=== PATIENT | male | born 1940 | race Caucasian/White ===

== ENCOUNTER → 2016-12-08 | Day surgery (SDC) | payer OTHER, MEDICARE ==
[2016-12-01 10:51] VITALS: Ht 177.8 cm; Wt 100.0 kg
[~2016-12-08] VITALS: Ht 177.8 cm; Wt 100.0 kg
[~2016-12-08] MED LIST: 500ML BSS 0.3ML EPI 1:1000PF IRRIG ONE; ACETAMINOPHEN 325 MG TAB PO PRN; AMVISC PLUS 0.8ML SYRINGE INT OCU ONE; ASPI81TA25 PO; ATROPINE SULFATE 0.1 MG/ML 5ML SYR IV PRN; AcetaZOLAMIDE 250 MG TAB PO SCH; BETAXOLOL HCL 0.25% OP SUSP PER DROP CHARGE OPL SCH; BRIMONIDINE TART 0.2% OP SOLN PER DROP CHARGE ONE; BSS FLUSH ONE; ENDOCOAT 0.85ML SYRINGE INT OCU ONE; EpHEDrine SULFATE INJ 50 MG/ML AMP IV PRN; EpINEphrine INJ 1MG/ML AMP 1 MG/ML AMP ONE; FENTANYL CITRATE INJ 50 MCG/1 ML 2 ML VIAL IV PRN; FENTANYL CITRATE INJ 50 MCG/1 ML 2 ML VIAL ONE; FLUMAZENIL 0.1 MG/1 ML 10 ML VIAL IV PRN; HYDROmorphone INJ 2 MG/ML SYR/VIAL IV PRN; LABETALOL HCL IV 5 MG/ML 20ML IV PRN; LACTATED RINGER'S 1000ML 500 ML IV SCH; LATA0.5S OPL; LIDOCAINE 4% OP SOLN DROP CHARGE ONE; LIDOCAINE 4% OP SOLN DROP CHARGE OPL SCH; LIDOCAINE HCL 1% MPF 2 ML VIAL ONE; MEPERIDINE HCL 25 MG/ML CARP IV PRN; MIDAZOLAM HCL 1 MG/ML 2ML VIAL ONE; MIX: 4ML BSS 1ML EPI 1:1000 PF INSTIL ONE; MOXIFLOXACIN OPH SOLN PER DROP CHARGE ONE; MULTTAB5 PO; NALOXONE HCL 0.4 MG/1 ML VIAL/CARP IV PRN; NAPR1TAB9 PO; NORT25CA PO; OCUCOAT 1 ML SOLN IO ONE; ONDANSETRON INJ 2 MG/ML 2 ML VIAL IV PRN; PHENYLEPHRINE 100MCG/ML 5ML SYR IV PRN; POVIDONE-IODINE OP SOLN 30 ML BTL ONE; PRLSR20 PO; PROPARACAINE 0.5% OP SOLN PER DROP CHARGE OPL SCH; TOBRAMYCIN/DEXAMETHASONE OPH OINT PER APPLN CHARGE ONE
--- NOTE | 2016-12-08 06:52 | History & Physical Bridge - [place] ---
H&P Re-Evaluation Bridge Note: I have examined the patient, reviewed the History & Physical and in the interval since the performance of the History & Physical I have noted the following changes of clinical significance: No changes noted
[2016-12-08] MEDS: PHENYLEPHRINE HCL 2.5% OP SOLN PER DROP CHARGE OPL SCH ×2 (07:18→07:23)
[2016-12-08] MEDS: TROPICAMIDE 1% OP SOLN PER DROP CHARGE OPL SCH ×2 (07:19→07:24)
[2016-12-08] MEDS: CYCLOPENTOLATE HCL 1% OP SOLN PER DROP CHARGE OPL SCH ×2 (07:20→07:25)
[2016-12-08] MEDS: MOXIFLOXACIN OPH SOLN PER DROP CHARGE OPL SCH ×2 (07:21→07:26)
[2016-12-08 08:21] VITALS: TEMP 36.7
--- NOTE | 2016-12-08 08:22 | Discharge Instructions-[facility]urgCtr ---
Discharge Instructions Date of Service Dec 08, 2016. Visit Reason for Visit: Left Cataract Discharge Discharge Diagnosis / Problem: lens implant left eye Discharge Goals Goal(s): Improve function Activity Recommendations Activity Limitations: resume your previous activity Lifting Limitations: no more than 10 pounds Exercise/Sports Limitations: gradually increase as tolerated May Resume Sexual Activity: when tolerated Shower/Bathe: tomorrow Driving or Machine Use: resume 1 day after discharge Anesthesia . Post Anesthesia Instructions: If you have had General Anesthesia or IV Sedation: * Do not drive today. * Resume driving when surgeon permits. * Do not make important decisions or sign legal documents today. * Call surgeon for: 1. Temperature elevations greater than 101 degrees F. 2. Uncontrollable pain. 3. Excessive bleeding. 4. Persistent nausea and vomiting. 5. Medication intolerance (nausea, vomiting or rash). * For nausea and vomiting use only clear liquids such as: tea, soda, bouillon until nausea subsides, then gradually increase diet as tolerated. * If you have any concerns or questions, call your surgeon's office. If physician is unavailable and it is an emergency, call 911 or go to the nearest emergency room. . Instructions / Follow-Up Instructions / Follow-Up ACTIVITY RECOMMENDATIONS: * Light activities. * Mild irritation and blurred vision are common for the first few days. * You may walk outside, read, watch television. * Redness around the white part of the eye is common. MEDICATIONS: Resume previous medications unless instructed otherwise by your surgeon. * Take white Diamox (Acetazolamide) tablet at 1 pm today. Start all eye drops at 1 pm today: * Eye drops (today and tomorrow): Prednisone - one drop in operative eye every 3 hours while awake Ofloxacin - one drop in operative eye every 3 hours while awake SPECIAL CARE INSTRUCTIONS: * Tape plastic shield over eye to sleep at night. Call your doctor at with any concerns or problems. FOLLOW UP VISIT: Follow-up with Dr Hayes at [place] office as scheduled. Diet Recommendations Home Diet: no limitations Procedures Procedures Performed: Left Cataract Phacoemulsification With Intraocular Lens Implant, Toric Lens Pending Studies Studies pending at discharge: no Medical Emergencies . Who to Call and When: Medical Emergencies: If at any time you feel your situation is an emergency, please call 911 immediately. . Non-Emergent Contact Non-Emergency issues call your: Nail Feeder Call Non-Emergent contact if: your pain is not controlled [phone] . . "Provider Documentation" section prepared by Clyde Hayes. .
--- NOTE | 2016-12-08 08:25 | [facility] Operative Report ---
Operative Report Date of Service Dec 08, 2016. Operative Report 1. PREOPERATIVE DIAGNOSIS: Senile nuclear cataract, left eye. 2. POSTOPERATIVE DIAGNOSIS: Senile nuclear cataract, left eye. 3. PROCEDURE: Phacoemulsification of left cataract with posterior chamber lens implant, type Romero, model [id number], power +23.0 diopters. ANESTHESIA: Local standby. SURGEON: Dr. Hayes. COMPLICATIONS: None. OPERATING TIME: 10 minutes. 4. OPERATION AND FINDINGS: DESCRIPTION OF PROCEDURE: The left pupil was dilated. The anesthetic was administered using a topical technique. The left eye was prepped and draped. A speculum was placed. A clear corneal incision was formed. The chamber was filled with Amvisc Plus and Endocoat. Epinephrine solution was used. A paracentesis was placed. A capsulorrhexis was performed. The nucleus was hydrodissected. The lens was removed with phacoemulsification. Time was 5.24 seconds. The aspiration unit was used to remove the cortex. The capsule was filled with Amvisc Plus. The lens implant was folded and placed into the capsule. The implant was rotated to the correct position. The incision was hydrated. The Amvisc was aspirated. The wound was secure. The chamber was deep. The pupil was round. Brimonidine, TobraDex ointment and Vigamox solution were placed. The speculum was removed. The patient was returned to the Recovery Room in stable condition. I attest to the content of the Intraoperative Record and any orders documented therein. Any exceptions are noted below. The scribe's documentation has been prepared in my presence, under my direction and personally reviewed by me in its entirety. I confirm that the note above accurately reflects all work, treatment, procedures, and medical decision making performed by me. I personally scribed for Clyde Hayes M.D. ([email or web address]) on 12/08/16 at 08:25. Electronically submitted by Torie Dockery ([email or web address]).
[2016-12-08 08:52] VITALS: BP 152/88; PULSE 85; O2SAT 94
--- NOTE | 2016-12-08 08:53 | Anesthesia Progress Nt - [facility] ---
Anesthesia Post Op Note Date & Time Dec 08, 2016 at 08:53 Vital Signs Pain Intensity: 0 Vital Signs Past 12 Hours Date Time Temp Pulse Resp B/P (MAP) Pulse Ox O2 Delivery O2 Flow Rate FiO2 12/08/16 08:21 36.7 85 12 148/90 (109) 95 Room Air 12/08/16 07:07 36.5 85 18 166/95 (118) 94 Room Air Notes Mental Status: alert / awake / arousable, participated in evaluation Pt Amnestic to Procedure: Yes Nausea / Vomiting: adequately controlled Pain: adequately controlled Airway Patency, RR, SpO2: stable & adequate BP & HR: stable & adequate Hydration State: stable & adequate Anesthetic Complications: no major complications apparent
== END | disposition home or self-care (01) ==
LOC: X.SURG 06:41
PROVIDERS: ATTEND Specialist
DX: H25.12 Age-related nuclear cataract, left eye (principal); M19.90 Unspecified osteoarthritis, unspecified site; K21.9 Gastro-esophageal reflux disease without esophagitis; Z90.49 Acquired absence of other specified parts of digestive tract; Z79.82 Long term (current) use of aspirin; Z85.118 Personal history of other malignant neoplasm of bronchus and lung; Z90.2 Acquired absence of lung [part of]; E66.9 Obesity, unspecified

== ENCOUNTER → 2017-05-25 | Outpatient (CLI) | payer OTHER, MEDICARE ==
[~2017-05-25] MED LIST changes: -500ML BSS 0.3ML EPI 1:1000PF IRRIG ONE; +ACET-1047 PO; +ACET-1311 PO; -ACETAMINOPHEN 325 MG TAB PO PRN; -AMVISC PLUS 0.8ML SYRINGE INT OCU ONE; -ATROPINE SULFATE 0.1 MG/ML 5ML SYR IV PRN; +ATV/1 PO; -AcetaZOLAMIDE 250 MG TAB PO SCH; -BETAXOLOL HCL 0.25% OP SUSP PER DROP CHARGE OPL SCH; -BRIMONIDINE TART 0.2% OP SOLN PER DROP CHARGE ONE; -BSS FLUSH ONE; +CLC100 PO; +DLM30 PO; -ENDOCOAT 0.85ML SYRINGE INT OCU ONE; -EpHEDrine SULFATE INJ 50 MG/ML AMP IV PRN; -EpINEphrine INJ 1MG/ML AMP 1 MG/ML AMP ONE; -FENTANYL CITRATE INJ 50 MCG/1 ML 2 ML VIAL IV PRN; -FENTANYL CITRATE INJ 50 MCG/1 ML 2 ML VIAL ONE; -FLUMAZENIL 0.1 MG/1 ML 10 ML VIAL IV PRN; +FOLI1TAB8 PO; -HYDROmorphone INJ 2 MG/ML SYR/VIAL IV PRN; -LABETALOL HCL IV 5 MG/ML 20ML IV PRN; -LACTATED RINGER'S 1000ML 500 ML IV SCH; -LIDOCAINE 4% OP SOLN DROP CHARGE ONE; -LIDOCAINE 4% OP SOLN DROP CHARGE OPL SCH; -LIDOCAINE HCL 1% MPF 2 ML VIAL ONE; -MEPERIDINE HCL 25 MG/ML CARP IV PRN; -MIDAZOLAM HCL 1 MG/ML 2ML VIAL ONE; -MIX: 4ML BSS 1ML EPI 1:1000 PF INSTIL ONE; -MOXIFLOXACIN OPH SOLN PER DROP CHARGE ONE; -NALOXONE HCL 0.4 MG/1 ML VIAL/CARP IV PRN; +NXM/40 PO; -OCUCOAT 1 ML SOLN IO ONE; +ONDA-170 PO; -ONDANSETRON INJ 2 MG/ML 2 ML VIAL IV PRN; +OXYC-57 PO; -PHENYLEPHRINE 100MCG/ML 5ML SYR IV PRN; -POVIDONE-IODINE OP SOLN 30 ML BTL ONE; -PROPARACAINE 0.5% OP SOLN PER DROP CHARGE OPL SCH; -TOBRAMYCIN/DEXAMETHASONE OPH OINT PER APPLN CHARGE ONE
--- NOTE | 2017-05-25 14:21 | DIAGNOSTIC IMAGING REPORT ---
CHEST 2 VIEWS ROUTINE CLINICAL HISTORY: C34.90 Malignant neoplasm of lung, unspecified laterality, unspe COMPARISON STUDY: Chest CT February 05, 2013 and chest radiograph January 02, 2015. FINDINGS: Incidental noted is made of cholecystectomy clips. Postoperative findings within the right lung are again noted. There is no evidence of pulmonary edema. There is no consolidation to suggest pneumonia. Cardiomediastinal silhouette is stable. There is a possible 1.5 cm left upper lung nodule. This was not evident on prior exam. Linear right midlung opacity is unchanged and suggests scarring. IMPRESSION: Possible 1.5 cm left upper lung nodule. This could reflect artifact, minimal airspace disease or a pulmonary nodule. If not recently performed, a chest CT is recommended to exclude a pulmonary nodule. Electronically signed by: Salomón Delgado M.D. 05/25/2017 2:20 PM Dictated Date/Time: 05/25/2017 2:15 PM
== END | disposition home or self-care (01) ==
LOC: C.RAD 13:35
PROVIDERS: ATTEND Urology
DX: C34.90 Malignant neoplasm of unspecified part of unspecified bronchus or lung (principal)

== ENCOUNTER → 2017-07-08 | Outpatient (CLI) | payer OTHER, MEDICARE ==
[~2017-07-08] MED LIST changes: -ACET-1311 PO; -ATV/1 PO; -DLM30 PO; -FOLI1TAB8 PO; -NXM/40 PO; -ONDA-170 PO
[2017-07-08 13:25] LABS: BASO % 0.4 %; BASO ABS # 0.02 K/uL (0-0.2); EOS % 0.8 %; EOS ABS # 0.04 K/uL (0-0.5); HEMATOCRIT 46.8 % (42-52); HEMOGLOBIN 16.3 g/dL (14.0-18.0); LYMPH % 17.3 %; LYMPH ABS # 0.85 K/uL (1.2-3.4); MEAN CELL VOLUME 87.8 fL (80-100); MEAN CORPUSCULAR HEMOGLOBIN 30.6 pg (25-34); MEAN CORPUSCULAR HGB CONC 34.8 g/dl (32-36); MONO % 9.8 %; MONO ABS # 0.48 K/uL (0.11-0.59); NEUT % 71.7 %; NEUT ABS # 3.51 K/uL (1.4-6.5); PLATELET COUNT 184 K/uL (130-400); RED CELL DISTRIBUTION WIDTH CV 12.4 % (11.5-14.5); RED CELL DISTRIBUTION WIDTH SD 39.5 fL (36.4-46.3)
[2017-07-08 13:50] LABS: BLOOD UREA NITROGEN 20 mg/dl (7-18); CARBON DIOXIDE 32 mmol/L (21-32); CREATININE 0.89 mg/dl (0.60-1.40); GLUCOSE 100 mg/dl (70-99); POTASSIUM 3.8 mmol/L (3.5-5.1); SODIUM 140 mmol/L (136-145)
== END | disposition home or self-care (01) ==
LOC: C.CPL 12:06
PROVIDERS: ATTEND Surgery
DX: C34.90 Malignant neoplasm of unspecified part of unspecified bronchus or lung (principal)

== ENCOUNTER → 2017-07-11 | Outpatient (CLI) | payer OTHER, MEDICARE ==
--- NOTE | 2017-07-11 15:28 | DIAGNOSTIC IMAGING REPORT ---
PET/CT CLINICAL HISTORY: Pulmonary nodule. History of prostate cancer and lung cancer. TECHNIQUE: A PET/CT was performed from the skull base through the upper thighs following intravenous injection of 11.33 mCi of F 18 FDG IV. The injection was performed at 9:49 AM on July 11, 2017 and imaging began at 11:05 AM on July 11, 2017. Unenhanced CT was performed for attenuation correction purposes and anatomic localization. COMPARISON STUDY: Chest CT February 15, 2013 and chest radiograph May 25, 2017. FINDINGS: Head and neck: No cervical lymphadenopathy is identified. There is no abnormal FDG uptake within the neck. Chest: There is moderate FDG uptake with in an irregular 1.6 cm subpleural left upper lobe nodule shown on image 62. This nodule corresponds to the finding shown on chest radiograph of May 25, 2017. SUV max for this nodule is 6.2. Note is made of an enlarged 1.6 cm prevascular lymph node shown on image 70 which has an SUV max of 7.8. A nonenlarged suspected left hilar lymph node is not evident on the CT portion of this exam but there is moderate focal FDG uptake on the PET portion of this study with an SUV max of 4.5. Postoperative findings within the right middle lobe are noted. Abdomen and Pelvis: No abdominal or pelvic lymphadenopathy is present. Water attenuation bilateral renal lesions are suboptimally assessed on this unenhanced exam but favor cysts. The gallbladder is surgically absent. Brachytherapy seeds within the prostate gland are noted. Musculoskeletal: There is mild focal uptake within the C6 vertebral body with an SUV max of 3.9. No corresponding lesion is shown on the CT portion of this exam. IMPRESSION: 1. Moderate FDG uptake within an irregular 1.6 cm subpleural left upper lobe nodule. This is highly suggestive of a neoplasm and favors a primary bronchogenic carcinoma. 2. Marked FDG uptake within a 1.6 cm prevascular lymph node consistent with lola spread of disease. Mild uptake within a nonenlarged left hilar lymph node which likely reflects an additional lola metastasis. 3. Mild focal uptake within the C6 vertebral body without CT correlate. Metastatic disease is considered unlikely however a follow-up MRI of the cervical spine could be obtained. Electronically signed by: Salomón Delgado M.D. 07/11/2017 3:27 PM Dictated Date/Time: 07/11/2017 2:21 PM
== END | disposition home or self-care (01) ==
LOC: C.PET 09:08
PROVIDERS: ATTEND Surgery
DX: R91.1 Solitary pulmonary nodule (principal)

== ENCOUNTER 2017-07-12 10:41 | Inpatient (IN) | payer OTHER, MEDICARE ==
[2017-07-08 14:07] VITALS: BMI 34.0
[2017-07-12] VITALS (7 sets, daily range): BP systolic 101–178; BP diastolic 56–98; PULSE 93–108; TEMP 36.3–36.9; O2SAT 94–99; Ht 177.8 cm; Wt 108.6 kg
[~2017-07-12] VITALS: Ht 177.8 cm; Wt 108.6 kg
[~2017-07-12 10:41] MED LIST changes: -ACET-1047 PO; -CLC100 PO; +DEXAMETHASONE SOD INJ 4 MG/ML VIAL ONE; +EpHEDrine SULFATE 50MG/5ML SYR ONE; +FENTANYL CITRATE INJ 50 MCG/1 ML 2 ML VIAL ONE; +GLYCOPYRROLATE INJ 0.2 MG/ML VIAL ONE; +LACTATED RINGER'S 1000ML 1,000 ML IV SCH; +LARYING-O-JET KIT (LTA) ONE; +LIDOCAINE HCL 2% 2 ML VIAL (20MG/ML) ONE; +MIDAZOLAM HCL 1 MG/ML 2ML VIAL ONE; +NEOSTIGMINE METHYLSULFATE 5 MG/5 ML SYR ONE; +ONDANSETRON INJ 2 MG/ML 2 ML VIAL ONE; -OXYC-57 PO; +PHENYLEPHRINE HCL INJ 10 MG/ML VIAL ONE; +PROPOFOL IV EMULSION 10 MG/ML 20 ML VIAL IV ONE; +ROCURONIUM BROMIDE 10 MG/ML 5 ML VIAL IV ONE
--- NOTE | 2017-07-12 11:27 | History & Physical Bridge Note ---
H&P Re-Evaluation Bridge Note: I have examined the patient, reviewed the History & Physical and in the interval since the performance of the History & Physical I have noted the following changes of clinical significance: Clinically stable. I'm concerned about the PET scan. The level node is hypermetabolic. 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 We do not have a tissue diagnosis. I have elected to proceed with a videomediastinoscopy with frozen section. If the lymph nodes are negative for metastases, we will proceed with a robot assisted wedge with frozen section and a probable left upper lobectomy.No changes noted
[2017-07-12] MEDS ORDERED: SODIUM CHLORIDE 0.9% PF 50 ML VIAL ONE ×2 (11:29→15:44)
[2017-07-12] MEDS ORDERED: SODIUM CHLORIDE 0.9% INJ 10 ML VIAL ONE (11:30)
[2017-07-12] MEDS ORDERED: BUPIVACAINE 0.5 % 5 MG/1 ML MPF 30ML VIAL ONE ×2 (11:30→15:39)
[2017-07-12] MEDS ORDERED: BUPIVACAINE LIPOSOME 1/3% 266 MG/20 ML VIAL INFIL ONE ×2 (11:30→15:39)
[2017-07-12] MEDS ORDERED: CEFAZOLIN SOD 1 GM VIAL ONE ×2 (12:48→14:15)
[2017-07-12] MEDS ORDERED: HYDROmorphone INJ 2 MG/ML SYR/VIAL IV PRN (13:30)
[2017-07-12] MEDS ORDERED: ATROPINE SULFATE 0.1 MG/ML 5ML SYR IV PRN (13:30)
[2017-07-12] MEDS ORDERED: KETOROLAC TROMETHAMINE 30 MG/ML VIAL IV. PRN (13:30)
[2017-07-12] MEDS ORDERED: ONDANSETRON INJ 2 MG/ML 2 ML VIAL IV PRN (13:30)
[2017-07-12] MEDS ORDERED: EpHEDrine SULFATE 50MG/5ML SYR ONE (14:40)
[2017-07-12] MEDS ORDERED: ALBUMIN HUMAN 5% 12.5 GM/250 ML VIAL IV ONE (14:53)
[2017-07-12] MEDS ORDERED: HYDROmorphone INJ 2 MG/ML SYR/VIAL ONE (15:38)
[2017-07-12] MEDS ORDERED: SODIUM CHL BACTERIOSTATIC 0.9% INJ 30 ML VIAL ONE (15:39)
[2017-07-12] MEDS ORDERED: PHENYLEPHRINE 100MCG/ML 5ML SYR ONE (15:46)
[2017-07-12] MEDS ORDERED: ROCURONIUM BROMIDE 10 MG/ML 5 ML VIAL IV ONE (16:47)
[2017-07-12] MEDS ORDERED: PHENYLEPHRINE HCL INJ 10 MG/ML VIAL ONE (16:48)
--- NOTE | 2017-07-12 17:29 | [facility] Post Operative Brief Note ---
Immediate Operative Summary Operative Date Jul 12, 2017. Pre-Operative Diagnosis Left Upper Lobe Mass Post-Operative Diagnosis Carcinoma left lung Procedure(s) Performed Left robot Assisted Thoracoscopy with Left Upper Lobectomy, Wedge Resection, and Mediastinal Lymphadenectomy, videomediastinoscopy Video Mediastinoscopy Surgeon Dr. Wojciech Tracy Electronic Coils Supervisor Surgeon(s) Ravindra Calderon PA-C Estimated Blood Loss 1st procedure= 5 mL, 2nd [id number]=680mK Findings Consistent with Post-Op Diagnosis Specimens Frozen Sections #1: R2 Lymph Node #2: R4 Lymph Node Sent to lab at 1308; carried by OR aide Results called and reported to Dr. Tracy at 1330. #3: Left upper lobe nodule Sent to lab at 1431; carried by OR aide Results called and reported to Dr. Tracy at 1459. # 4 Left upper lobe for bronchial margins sent 1659 Fresh Specimens A: Level 6 Lymph Node B: Level 11 Lymph Node (x5) C. Level 12 Lymph Node D. Level 10 Lymph node (x3) E. Level 5 Lymph node Anesthesia Type General
[2017-07-12] MEDS ORDERED: D5W AND 1/2NSS 1,000 ML IV SCH (17:32)
[2017-07-12] MEDS ORDERED: MoRPHine SULFATE 2 MG/ML CARP IV PRN ×2 (17:45→20:15)
--- NOTE | 2017-07-12 18:02 | DIAGNOSTIC IMAGING REPORT ---
CHEST ONE VIEW PORTABLE HISTORY: 76 years-old Male [facility] malignant neoplasm of the left upper lobe COMPARISON: PET CT 07/11/2017, chest radiograph 05/25/2017 TECHNIQUE: Portable AP view of the chest FINDINGS: Cardiac silhouette is again mildly enlarged. Atherosclerosis of the aorta. Trace left pleural effusion with linear subsegmental perihilar and bibasilar opacities suggesting atelectasis. Left-sided chest tube is noted with distal tip projecting adjacent to the left upper lobe. No definite pneumothorax identified. Bones appear grossly intact. Multilevel endplate spurring of the spine. IMPRESSION: 1. Left-sided chest tube projects over the left lung apex. No definite pneumothorax identified. 2. Probable bibasilar atelectasis with trace left pleural effusion. The above report was generated using voice recognition software. It may contain grammatical, syntax or spelling errors. Electronically signed by: Sergio Garza M.D. 07/12/2017 6:00 PM Dictated Date/Time: 07/12/2017 5:58 PM
--- NOTE | 2017-07-12 19:07 | Anesthesiology Progress Note ---
Anesthesia Post Op Note Date & Time Jul 12, 2017 at 19:06 Vital Signs Pain Intensity: 0 Vital Signs Past 12 Hours Date Time Temp Pulse Resp B/P (MAP) Pulse Ox O2 Delivery O2 Flow Rate FiO2 07/12/17 18:45 87 16 93/49 98 Oxymask 3 07/12/17 18:35 86 16 91/47 100 Oxymask 3 07/12/17 18:25 86 18 91/52 96 Oxymask 3 07/12/17 18:15 87 18 103/63 100 Oxymask 5 07/12/17 18:05 84 18 115/65 99 Oxymask 10 07/12/17 17:55 84 20 115/72 100 Oxymask 10 07/12/17 17:47 36.3 85 20 112/59 98 Oxymask 10 07/12/17 11:08 36.7 107 18 178/98 Notes Mental Status: alert / awake / arousable, participated in evaluation Pt Amnestic to Procedure: Yes Nausea / Vomiting: adequately controlled Pain: adequately controlled Airway Patency, RR, SpO2: stable & adequate BP & HR: stable & adequate Hydration State: stable & adequate Anesthetic Complications: no major complications apparent Pt remains asymptomatic, resting comfortably. Pt states having low blood pressures in the past.
--- NOTE | 2017-07-12 19:12 | OPERATIVE REPORT ---
DATE OF OPERATION: 07/12/2017 PREOPERATIVE DIAGNOSIS: Hypermetabolic mass, left upper lobe. POSTOPERATIVE DIAGNOSIS: Same. PROCEDURE: 1. Video mediastinoscopy with biopsy. 2. Left robot-assisted thoracoscopy with wedge resection. 3. Robot-assisted thoracoscopic left upper lobectomy. 4. Mediastinal lymph node dissection. SURGEON: Wojciech Tracy MD. NATURAL [employer] SUPERVISOR: ABEBE Lebron, (MrLillie Calderon was present for the entire case and was instrumental in helping not only holding the camera but also as the person at the bedside while I was at the console. At the conclusion of the case, he closed the skin incisions.) ANESTHESIA: General anesthesia with endotracheal intubation using double lumen tube. 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 He did well and was back in this area seeing his urologist as he has a history of prostate cancer. His PSA level was normal but he asked a chest x-ray be done because he has not had one in a while. This showed he had a mass in his left upper lobe. A CT scan down in [place] confirmed this. We discussed this by phone and the patient came back to [facility], I saw him last week. We did a PET scan yesterday. PET scan lit up the level 6 lymph node which was enlarged as well as more peripheral hilar node. He had no evidence of extrathoracic disease. At this point, I explained to Dr. Martin that I would like to do a mediastinoscopy and if the nodes were negative, we would proceed with a wedge resection with frozen section and probable lobectomy. On 07/12/2017, the patient came to the operating room and I performed a video mediastinoscopy. I biopsied the right level 2 and right level [address] Martin was bit difficult. He had some kyphosis, but it was difficult to get down on the left side as I would have liked. I really did not see much in the way of level 7 node but again it was difficult to get to. The frozen section on the contralateral nodes were negative and we decided to proceed with surgery. The patient was turned and we did a robot-assisted wedge resection of a mass which was imbricating the pleura which was not attached to the chest wall. This was a nonsmall cell lung carcinoma. It did not resemble prostate on frozen section. I removed the level 6 lymph node in its entirety without breaking the capsule. I then did a left upper lobectomy without difficulty. We biopsied the level 5, 6, 10, 11 and 12 lymph nodes. We got multiple lymph nodes from these areas. I took down the inferior pulmonary ligament but the level 8 and 9 nodes were really not seen. He tolerated it quite well. DESCRIPTION OF THE PROCEDURE: The patient brought to the operating room, laid in supine position. General anesthesia induced and endotracheal intubation was performed with a double lumen tube. The patient's neck was extended and an incision was made one fingerbreadth above the sternal notch after he had been prepped and draped in usual sterile fashion. Appropriate timeout had been called and prophylactic antibiotics given. Sharp and blunt dissection where used to dissect down to the pretracheal plane which was developed. It was difficult to get the video mediastinoscope in due to the patient's mild psychosis and that his neck was fixed a bit in flexion. He was also a large man. I was able to get it down into and biopsied a normal appearing right level 2 and right level 4 node. I got down to the subcarinal space. Really there was not much in the way of lymph nodes. I did not see anything of significant in the level 2 and 4 nodes on the left. I slowly withdrew the video mediastinoscope. Bleeding had been controlled on the right side with the cautery, although I did not use this on the left. Really did not get again bleeding on the left. A 3-0 Vicryl was used to reapproximate the strap muscles and the mediastinoscope was removed. A 4-0 Monocryl was used in running subcuticular fashion to approximate the wound edges. The patient was then turned into the right lateral decubitus position. His left chest prepped, draped in usual sterile fashion. A total of 5 incisions were made at about the eighth interspace. These were all 10 mm apart. Two 8 mm ports, a 12 mm port, a 5 mm port and then an another 12 mm operations assistant port was made a few interspace below the 8 interspace. Upon entering, I could see there were really no adhesions. There were no implants. The imbricated mass was noted immediately. We grasped this and we excised this by firing an Endo-TARA stapler. This was sent for frozen section. While waiting for the frozen section, I took down the posterior pleura and identified the pulmonary artery posteriorly as it entered the fissure. I actually had dissected out one of the branches going to the upper lobe. Frozen section came back as a nonsmall cell lung carcinoma. I continued my dissection out posteriorly on the pleura and then retracted the lung posteriorly and freed up the entire anterior pleura. This large level 6 lymph node was removed from the periaortic area. The vein and the artery were easily identified. I then completed the fissure posteriorly by going through the fissure and using the bipolar forceps to complete this. Endo-TARA stapler was then fired around a branch which was fairly large and bifurcated fairly quickly going to the upper lobe. I then continued down the fissure and freed up the rest of the fissure and then saw 2 rather large branches going to the lingula and then just below this in the artery was another branch was going to the medial segment of the lower lobe. As I cleaned this off, I then was able to divide the lingular branches with an Endo-TARA stapler. This really freed things up nicely and then I fired an Endo-TARA stapler twice to complete the anterior fissure. The vein was freed up quite nicely. I fired Endo-TARA stapler across this. I then retracted the lobe inferiorly and took down more of the pleura and then fired Endo-TARA stapler across the first branch of the pulmonary artery. This left just the bronchus. Endo-TARA stapler was fired. I also took down the inferior pulmonary ligament and actually looked quite diligently for the level 8 and 9 nodes and just did not see any even with pulling the esophagus. I then took out a level 5 node, level 10 nodes, multiple level 11 and level 12 nodes. I really did not see much in the way of level 7 area by retracting the bronchus anteriorly and going down behind the aorta. These nodes were not enlarged or hypermetabolic. 266 mg of Exparel were mixed with 30 mL of 0.5% bupivacaine and 100 mL of normal saline injected into each interspace. This was done under direct vision intrathoracically without difficulty. I then injected each incision with the Exparel also. There was no air leak noted. The margins were noted to be negative for carcinoma on frozen section of the bronchus. We irrigated out the chest and then there was no significant bleeding. A 24-Palestinian chest tube was left to the anterior most port site and directed towards the apex. This was held in place with a heavy silk suture. It should be noted that the operations assistant's incision had to be opened to about 5 cm in order to get the lobe out through the Endobag. This was done without difficulty. 0 Vicryl was used to close the muscle layer over this and 0 Vicryl was used to close the muscle layers in the two 8 mm ports. 4-0 Monocryl was used in running subcuticular fashion to approximate the skin incisions on all of the wounds. The patient had no air leak. He was extubated in the room without difficulty. He tolerated it quite well. I attest to the content of the Intraoperative Record and any orders documented therein. Any exception s are noted below.
[2017-07-12] MEDS ORDERED: MoRPHine SULFATE 2 MG/ML CARP ONE (19:54)
[2017-07-12] MEDS ORDERED: METOCLOPRAMIDE HCL INJ 5 MG/ML 2 ML VIAL ONE (19:55)
[2017-07-12] MEDS: PROMETHAZINE HCL INJ 25 MG in SODIUM CHLORIDE 0.9% 50ML 50 ML IV PRN (20:00)
[2017-07-12] MEDS: ACETAMINOPHEN IV 1,000 MG in EMPTY BAG 0 ML IV SCH (20:31)
[2017-07-12] MEDS: KETOROLAC TROMETHAMINE 15 MG/ML VIAL IV. SCH (20:45)
[2017-07-12] MEDS: MoRPHine SULFATE 2 MG/ML CARP IV PRN (21:03)
[2017-07-12] MEDS: METOCLOPRAMIDE HCL INJ 5 MG/ML 2 ML VIAL IV. SCH (21:43)
[2017-07-12] MEDS: LATANOPROST 0.005% OP SOLN 2.5 ML BTL OPL SCH (21:45)
[2017-07-12] MEDS: DOCUSATE SODIUM 100 MG CAP PO SCH (21:45)
[2017-07-12] MEDS: NORTRIPTYLINE HCL 25 MG CAP PO SCH (21:46)
[2017-07-13] VITALS (11 sets, daily range): BP systolic 104–148; BP diastolic 61–76; PULSE 99–108; TEMP 36.6–37.7; O2SAT 90–92
[2017-07-13] MEDS: ONDANSETRON INJ 2 MG/ML 2 ML VIAL IV PRN ×2 (00:47→06:17)
[2017-07-13] MEDS: KETOROLAC TROMETHAMINE 15 MG/ML VIAL IV. SCH ×3 (03:59→20:06)
[2017-07-13] MEDS: ACETAMINOPHEN IV 1,000 MG in EMPTY BAG 0 ML IV SCH (04:01)
[2017-07-13 05:25] LABS: BASO % 0.1 %; BASO ABS # 0.01 K/uL (0-0.2); HEMATOCRIT 36.5 % (42-52); HEMOGLOBIN 12.6 g/dL (14.0-18.0); IG# 0.02 K/uL (0.00-0.02); LYMPH % 5.1 %; LYMPH ABS # 0.53 K/uL (1.2-3.4); MEAN CELL VOLUME 88.2 fL (80-100); MEAN CORPUSCULAR HEMOGLOBIN 30.4 pg (25-34); MEAN CORPUSCULAR HGB CONC 34.5 g/dl (32-36); MEAN PLATELET VOLUME 8.5 fL (7.4-10.4); MONO % 9.6 %; MONO ABS # 1.01 K/uL (0.11-0.59); PLATELET COUNT 157 K/uL (130-400); RED CELL DISTRIBUTION WIDTH CV 12.7 % (11.5-14.5); RED CELL DISTRIBUTION WIDTH SD 40.9 fL (36.4-46.3); WHITE BLOOD COUNT 10.47 K/uL (4.8-10.8)
[2017-07-13 05:30] LABS: PTT PATIENT 25.8 SECONDS (21.0-31.0)
[2017-07-13 05:50] LABS: CALCIUM 7.9 mg/dl (8.5-10.1); CREATININE 1.01 mg/dl (0.60-1.40); POTASSIUM 4.2 mmol/L (3.5-5.1)
[2017-07-13] MEDS: OXYCODONE HCL IR 5 MG TAB (IMMEDIATE RELEASE) PO PRN ×2 (05:57→15:52)
[2017-07-13] MEDS: METOCLOPRAMIDE HCL INJ 5 MG/ML 2 ML VIAL IV. SCH (05:57)
[2017-07-13] MEDS ORDERED: NURSING DECISION MEDICATION ORDER SCH (06:15)
[2017-07-13] MEDS: MoRPHine SULFATE 2 MG/ML CARP IV PRN (06:18)
--- NOTE | 2017-07-13 07:07 | SURGERY PROGRESS NOTE ---
DATE: 07/13/2017 Dr. Martin was seen today 1 day status post thoracoscopic left upper lobectomy for a nonsmall cell lung carcinoma. He is having quite a bit of pain. I am a bit surprised given the fact that we did a block on him with Exparel. At this point, we are going to switch him over to Demerol as that has worked better for him in the past. Otherwise, he looks great. His labs looked great. He is on room air. He does not have an air leak. We are going to get him up walking today and probably discontinue his chest tube tomorrow and get him home.
--- NOTE | 2017-07-13 07:15 | DIAGNOSTIC IMAGING REPORT ---
CHEST ONE VIEW PORTABLE CLINICAL HISTORY: [facility] COMPARISON STUDY: Chest radiograph July 12, 2017. FINDINGS: Left apical chest tube is in place. Postoperative findings within the left hemithorax are again noted. No pneumothorax is identified. There is no evidence for pulmonary edema. Left perihilar opacity is unchanged and likely postsurgical. Postoperative findings within the right lung are noted. IMPRESSION: Left chest tube in place. No pneumothorax. Mild improvement in bilateral lower lung aeration. Electronically signed by: Salomón Delgado M.D. 07/13/2017 7:13 AM Dictated Date/Time: 07/13/2017 7:11 AM
--- NOTE | 2017-07-13 08:52 | Clinical Documentation Query ---
CLINICAL DOCUMENTATION QUERY Dr. SANDOVAL, In your clinical opinion is this patient being managed for: ( ) Acute blood loss anemia ( ) Not Agree ( X ) Other explanation of clinical findings (Please Explain) Dilution and pre-op hemoconcentration likely account for this drop. He will come back up when he equilibrates. ( ) Unable to determine (Please Define) ( ) Need to Discuss The medical record reflects the following clinical findings, treatment, and risk factors. Clinical Indicators: 76 yo male presenting with nonsmall lung carcinoma. EBL of 105 cc with 125 cc chest tube drainage since surgery. Baseline Hgb 16.3/Hct 46.8 which dropped to Hgb 12.6/Hct 36.5. BP down in PACU 91/47 Treatment: serial CBC's, IV fluid bolus then continuous Risk Factors: surgical procedure Please clarify and document your clinical opinion in the progress notes and discharge summary. Terms such as "probable", "suspected", "likely", "questionable", "possible", or "still to be ruled out" are acceptable. IF IN AGREEMENT, YOU MUST DOCUMENT ABOVE DIAGNOSTIC STATEMENT IN DAILY PROGRESS NOTES AND DISCHARGE SUMMARY. This document is not part of the patient's record. Thank You, Anan Fernández RN [phone]
[2017-07-13] MEDS: CEROVITE ADV FORMULA TAB PO SCH (09:00)
[2017-07-13] MEDS: ASPIRIN 81 MG ECTAB PO SCH (09:10)
[2017-07-13] MEDS: PANTOprazole SOD 40 MG TAB PO SCH (09:10)
[2017-07-13] MEDS: DOCUSATE SODIUM 100 MG CAP PO SCH ×2 (09:10→21:06)
[2017-07-13] MEDS: ENOXAPARIN 40 MG/0.4 ML SYR SQ SCH (09:15)
--- NOTE | 2017-07-13 09:21 | Anesthesiology Progress Note ---
Anesthesia Post Op Note Date & Time Jul 13, 2017 at 09:20 Vital Signs Pain Intensity: 5.0 Vital Signs Past 12 Hours Date Time Temp Pulse Resp B/P (MAP) Pulse Ox O2 Delivery O2 Flow Rate FiO2 07/13/17 08:05 Room Air 07/13/17 07:00 37.0 102 17 118/67 (84) 91 Room Air 07/13/17 05:40 36.6 105 17 104/65 (78) 91 Room Air 07/13/17 03:40 37.1 107 17 105/61 (76) 91 Room Air 07/13/17 01:40 36.7 105 17 116/70 (85) 91 Room Air 07/12/17 23:40 36.4 108 17 137/73 (94) 94 Room Air 07/12/17 23:15 Room Air 07/12/17 22:40 36.7 106 16 148/78 (101) 97 Nasal Cannula 2.0 07/12/17 21:40 36.9 99 16 113/71 (85) 99 Nasal Cannula Notes Mental Status: alert / awake / arousable, participated in evaluation Pt Amnestic to Procedure: Yes Nausea / Vomiting: adequately controlled Pain: adequately controlled Airway Patency, RR, SpO2: stable & adequate BP & HR: stable & adequate Hydration State: stable & adequate Anesthetic Complications: no major complications apparent
[2017-07-13] MEDS: ACETAMINOPHEN 325 MG TAB PO SCH ×3 (12:06→23:52)
[2017-07-13] MEDS: NORTRIPTYLINE HCL 25 MG CAP PO SCH (21:05)
[2017-07-13] MEDS: LATANOPROST 0.005% OP SOLN 2.5 ML BTL OPL SCH (21:06)
[2017-07-13] MEDS: PROMETHAZINE HCL INJ 25 MG in SODIUM CHLORIDE 0.9% 50ML 50 ML IV PRN (22:39)
[2017-07-13] MEDS: MEPERIDINE HCL 50 MG/ML CARP IV PRN (22:41)
[2017-07-14 02:30] VITALS: BP 146/89; PULSE 102; TEMP 37.2; O2SAT 92
[2017-07-14] MEDS: KETOROLAC TROMETHAMINE 15 MG/ML VIAL IV. SCH (04:08)
[2017-07-14] MEDS: MEPERIDINE HCL 50 MG/ML CARP IV PRN (04:37)
[2017-07-14] MEDS: PROMETHAZINE HCL INJ 25 MG in SODIUM CHLORIDE 0.9% 50ML 50 ML IV PRN (04:38)
[2017-07-14] MEDS: ACETAMINOPHEN 325 MG TAB PO SCH (06:09)
[2017-07-14 06:29] VITALS: BP 99/61; PULSE 106; TEMP 36.6; O2SAT 91
[2017-07-14 06:52] VITALS: BP 128/69; PULSE 102; TEMP 36.4; O2SAT 91
[2017-07-14] MEDS ORDERED: CLC100 PO (07:55)
[2017-07-14] MEDS ORDERED: ACET-1047 PO (07:55)
--- NOTE | 2017-07-14 07:57 | Discharge Instructions ---
Discharge Instructions Date of Service Jul 14, 2017. Admission Reason for Admission: Malignant Neoplasm Of Lung, Unspecified Laterality Discharge Discharge Diagnosis / Problem: Malignant Neoplasm Of Lung Discharge Goals Goal(s): Learn about illness Activity Recommendations Activity Limitations: as noted below Lifting Limitations: none 1. Do not drive or fly until cleared to do so by Dr. Tracy. 2. Do not take tylenol if using percocet. 3. You may remove dressings in 3 days and shower thereafter. No tub baths. . Instructions / Follow-Up Instructions / Follow-Up 1. Office appointment with Dr. Tracy in 1 week. Office will call you with date and time of appointment. Go to hospital 1 hour before appointment to have a chest x-ray taken. Current Hospital Diet Patient's current hospital diet: Regular Diet Discharge Diet Recommended Diet: Regular Diet Procedures Procedures Performed: Left robot Assisted Thoracoscopy with Left Upper Lobectomy, Wedge Resection, and Mediastinal Lymphadenectomy, videomediastinoscopy Video Mediastinoscopy Pending Studies Studies pending at discharge: no Medical Emergencies . Who to Call and When: Medical Emergencies: If at any time you feel your situation is an emergency, please call 911 immediately. . Non-Emergent Contact Non-Emergency issues call your: Surgeon Call Non-Emergent contact if: you have a fever, your pain is not controlled, wound has increased drainage . "Provider Documentation" section prepared by Ravindra Calderon. . VTE Core Measure Inpt VTE Proph given/why not?: Enoxaparin (Lovenox)SQ
--- NOTE | 2017-07-14 08:01 | DIAGNOSTIC IMAGING REPORT ---
CHEST ONE VIEW PORTABLE CLINICAL HISTORY: [facility] COMPARISON STUDY: Chest radiograph July 13, 2017. FINDINGS: Left chest tube is unchanged in position. Postoperative findings within the left lung are noted. A small left pneumothorax has developed with pleural separation of 5 mm. Cardiac mediastinal silhouette is stable. Lung volumes are mildly diminished. Postoperative findings within the right lung are noted. No pleural effusion is identified. There is no evidence for pulmonary edema. IMPRESSION: Interval development of a small left apical pneumothorax. Left chest tube in place. Electronically signed by: Salomón Delgado M.D. 07/14/2017 7:59 AM Dictated Date/Time: 07/14/2017 7:57 AM
--- NOTE | 2017-07-14 08:08 | DIAGNOSTIC IMAGING REPORT ---
CHEST ONE VIEW PORTABLE CLINICAL HISTORY: 76 years-old Male presenting with tube removal . TECHNIQUE: Portable upright AP view of the chest was obtained. COMPARISON: 07/14/2017 at 7:26 AM. FINDINGS: Interval removal of the large bore left pleural drain. Atherosclerosis of aortic arch. Cardiac silhouette enlarged. Mildly low lung volumes. Trace left apical pneumothorax with a pleural separation of 2 mm, decreased from prior. Minimal bibasilar opacities. Degenerative changes of the thoracic spine. Upper abdomen normal. IMPRESSION: 1. Removal of the large bore left pleural drain with minimal residual left apical pneumothorax. 2. Mildly low lung volumes with hypoventilatory changes. Electronically signed by: Alfonzo Regalado M.D. 07/14/2017 8:07 AM Dictated Date/Time: 07/14/2017 8:05 AM
[2017-07-14] MEDS ORDERED: OXYC-57 PO (08:21)
[2017-07-14] MEDS: CEROVITE ADV FORMULA TAB PO SCH (09:23)
[2017-07-14] MEDS: DOCUSATE SODIUM 100 MG CAP PO SCH (09:23)
[2017-07-14] MEDS: PANTOprazole SOD 40 MG TAB PO SCH (09:23)
[2017-07-14] MEDS: ENOXAPARIN 40 MG/0.4 ML SYR SQ SCH (09:24)
[2017-07-14] MEDS: ASPIRIN 81 MG ECTAB PO SCH (09:24)
[2017-07-14 10:36] VITALS: BP 128/69; PULSE 102; TEMP 36.4; O2SAT 91
--- NOTE | 2017-07-14 15:22 | Discharge Summary ---
Discharge Summary Date of Service Jul 14, 2017. 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 He underwent a video mediastinoscopy with a frozen section. His contralateral mediastinal nodes were negative for carcinoma. He was then turned and I performed a robot- assisted thoracoscopic left upper lobectomy with mediastinal lymph node dissection. He did quite well. He had a bit more pain than I would have expected. He was watched on the floor. We had negligible blood loss. He had no air leak after surgery. He was walking in the hallway on postop day 1. I removed his chest tube and his pain greatly improved on postop day 2. His incisions were clean.. He was discharged home a postop day 2. His preliminary pathology suggests stage IIIa adenocarcinoma. The patient's chest x-ray look quite good at we pulled the chest tube. They will be discharged today. Discharge instructions were given for wound care. There are no sutures to be removed. Patient will be seen back in the office and we will go over pathology results. They have been given instructions to call me if any problems arise.
--- NOTE | 2017-07-18 07:57 | EDITING REQUIRED CODING QUERY ---
PATHOLOGY To promote full compliance with coding requirements relating to patient care, physician participation is requested in all cases of electronics system mechanic uncertainty. Please assist us with the question(s) below: Please review the Pathology report and please document any relevant diagnosis(es) below: Diagnosis(es): Adenocarcinoma Left upper lobe (T1N2M0) or Stage IIIA adenocarcinoma of lung. Thank you SUSAN Beckwith CCS
== END 2017-07-14 11:29 | disposition home or self-care (01) | DRG 165 ==
LOC: C.ACU 10:41 → C.MSW 17:36 → ENRESERV 18:10
PROVIDERS: ADMIT Surgery; ATTEND Surgery
PROC: 0BBG8ZX Excision of Left Upper Lung Lobe, Via Natural or Artificial Opening Endoscopic, Diagnostic (ICD-10-PCS; principal; 2017-07-12 12:15)
PROC: 8E0W8CZ Robotic Assisted Procedure of Trunk Region, Via Natural or Artificial Opening Endoscopic (ICD-10-PCS; principal; 2017-07-12 12:15)
PROC: 0BTG4ZZ Resection of Left Upper Lung Lobe, Percutaneous Endoscopic Approach (ICD-10-PCS; principal; 2017-07-12 12:15)
PROC: 07B74ZX Excision of Thorax Lymphatic, Percutaneous Endoscopic Approach, Diagnostic (ICD-10-PCS; principal; 2017-07-12 12:15)
DX: C34.12 Malignant neoplasm of upper lobe, left bronchus or lung (principal); K21.9 Gastro-esophageal reflux disease without esophagitis; E78.5 Hyperlipidemia, unspecified; M40.209 Unspecified kyphosis, site unspecified; H47.019 Ischemic optic neuropathy, unspecified eye; Z80.42 Family history of malignant neoplasm of prostate; Z85.118 Personal history of other malignant neoplasm of bronchus and lung; Z90.2 Acquired absence of lung [part of]; Z87.891 Personal history of nicotine dependence; Z85.46 Personal history of malignant neoplasm of prostate; Z77.098 Contact with and (suspected) exposure to other hazardous, chiefly nonmedicinal, chemicals; Z92.3 Personal history of irradiation; Z80.1 Family history of malignant neoplasm of trachea, bronchus and lung

== ENCOUNTER → 2017-07-21 | Outpatient (CLI) | payer OTHER, MEDICARE ==
[~2017-07-21] MED LIST changes: +ACET-1047 PO; +CLC100 PO; -DEXAMETHASONE SOD INJ 4 MG/ML VIAL ONE; -EpHEDrine SULFATE 50MG/5ML SYR ONE; -FENTANYL CITRATE INJ 50 MCG/1 ML 2 ML VIAL ONE; +FOLI1TAB8 PO; -GLYCOPYRROLATE INJ 0.2 MG/ML VIAL ONE; -LACTATED RINGER'S 1000ML 1,000 ML IV SCH; -LARYING-O-JET KIT (LTA) ONE; -LIDOCAINE HCL 2% 2 ML VIAL (20MG/ML) ONE; -MIDAZOLAM HCL 1 MG/ML 2ML VIAL ONE; -NEOSTIGMINE METHYLSULFATE 5 MG/5 ML SYR ONE; +NXM/40 PO; +ONDA8TAB6 PO; -ONDANSETRON INJ 2 MG/ML 2 ML VIAL ONE; +OXYC-57 PO; -PHENYLEPHRINE HCL INJ 10 MG/ML VIAL ONE; -PROPOFOL IV EMULSION 10 MG/ML 20 ML VIAL IV ONE; -ROCURONIUM BROMIDE 10 MG/ML 5 ML VIAL IV ONE
--- NOTE | 2017-07-21 10:29 | DIAGNOSTIC IMAGING REPORT ---
CHEST 2 VIEWS ROUTINE CLINICAL HISTORY: MALIGNANT NEOPLASM OF LUNG lung carcinoma COMPARISON STUDY: 07/14/2017 FINDINGS: Trace amount pleural fluid left base. No significant pneumothorax. Lungs otherwise appear clear. Stable postprocedural change left hemithorax. IMPRESSION: Trace reaccumulation of pleural fluid left base. Mild left basilar atelectasis. No significant pneumothorax. The above report was generated using voice recognition software. It may contain grammatical, syntax or spelling errors. Electronically signed by: Sushil Sanchez M.D. 07/21/2017 10:28 AM Dictated Date/Time: 07/21/2017 10:27 AM
== END | disposition home or self-care (01) ==
LOC: C.RAD 09:51
PROVIDERS: ATTEND Surgery
DX: C34.90 Malignant neoplasm of unspecified part of unspecified bronchus or lung (principal)

== ENCOUNTER 2017-08-07 09:02 | Emergency (ER) | payer OTHER, MEDICARE ==
[~2017-08-07] VITALS: Ht 177.8 cm; Wt 108.0 kg
[~2017-08-07 09:02] MED LIST changes: -PRLSR20 PO
[2017-08-07 09:18] VITALS: TEMP 37.2; Ht 177.8 cm; Wt 108.0 kg
[2017-08-07] MEDS ORDERED: SODIUM CHLORIDE 0.9% 1000ML 1,000 ML IV STA (09:20)
[2017-08-07 09:29] LABS: HEMOGLOBIN 14.7 g/dL (14.0-18.0); MEAN CELL VOLUME 87.8 fL (80-100); MEAN CORPUSCULAR HGB CONC 34.2 g/dl (32-36); MEAN PLATELET VOLUME 8.9 fL (7.4-10.4); NUCLEATED RED BLOOD CELL ABS 0.02 K/uL (0-0); PLATELET COUNT 173 K/uL (130-400); RED CELL DISTRIBUTION WIDTH CV 12.8 % (11.5-14.5); RED CELL DISTRIBUTION WIDTH SD 40.8 fL (36.4-46.3); WHITE BLOOD COUNT 25.21 K/uL (4.8-10.8)
--- NOTE | 2017-08-07 09:36 | EMERGENCY ROOM VISIT NOTE ---
History Report prepared by Marycarmen: Derek Michelle Under the Supervision of: Dr. Gerardo Dickerson M.D. First contact with patient: 09:12 Chief Complaint: CHEST PAIN Stated Complaint: TACHYCARDIA History of Present Illness The patient is a 76 year old male who presents to the Emergency Room with complaints of intermittent tachycardia that began 9 hours ago. Patient states that he has been getting "a lot of irregular PVCs and irregular tachycardia with rates around 130-140". Patient has associated symptoms of diaphoresis, chest "heaviness", shortness of breath with the tachycardia, and weakness on exertion. Patient denies any pain, fevers, coughs, diarrhea, nausea, or numbness. Patient adds that he was diagnosed in April with non-small cell lung cancer. Pertinent past surgical history includes a left upper lobectomy performed by Dr. Tracy. He states that his oncologist is Dr. Logan. Patient states that he started [place]-based chemotherapy 3 days ago. Patient denies a history of cardiac problems. He denies ever having a stress test performed. Patient states that he has been eating well. He states that he has no port in place. Source of History: patient Onset: 9 hours ago Position: chest Timing: intermittent Modifying Factors (Relieving): other (None) Associated Symptoms: + diaphoresis, + SOB, + weakness, No fevers, No cough, No nausea, No diarrhea, No numbness Review of Systems See HPI for pertinent positives & negatives. A total of 10 systems reviewed and were otherwise negative. Past Medical & Surgical Medical Problems: (1) ACUTE CHRONIC CHOLESCYSTITIS (2) ELEVATED PROSTATE SPECIFIC ANTIGEN [PSA] (3) lung can (4) Non-small cell lung cancer (5) PURE HYPERCHOLESTEROLEM Family History Omitted secondary to age. Social History Smoking Status: Former Smoker Drug Use: none Marital Status: Occupation Status: employed Current/Historical Medications Scheduled Acetaminophen (Mapap), 650 MG PO Q6H Aspirin (Aspir-Low), 81 MG PO QAM Docusate Sodium (Docusate Sodium), 100 MG PO BID Esomeprazole Magnesium (Nexium), 40 MG PO DAILY Folic Acid (Folvite), 1 TAB PO DAILY Latanoprost (Xalatan 0.005% Oph Bea), 1 DROPS OPL HS Multiple Vitamins W/ Minerals (Centrum), 1 TAB PO QAM Naproxen (Aleve), 440 MG PO prn Nortriptyline (Pamelor), 100 MG PO HS Scheduled PRN Ondansetron Hcl (Zofran), 8 MG PO Q8 PRN for Nausea Oxycodone/Acetaminophen 5MG/325MG (Percocet 5MG/325MG), 1-2 TABLETS PO Q6 PRN for Pain Allergies Coded Allergies: No Known Allergies (Verified , 08/07/17) Physical Exam Vital Signs Date Time Temp Pulse Resp B/P (MAP) Pulse Ox O2 Delivery O2 Flow Rate FiO2 08/07/17 12:50 95 20 174/92 99 08/07/17 12:31 93 08/07/17 10:54 98 16 143/75 96 Room Air 08/07/17 10:11 96 Room Air 08/07/17 10:11 94 16 128/71 98 113/63 08/07/17 10:05 96 Room Air 08/07/17 09:18 37.2 104 18 125/61 93 Room Air 08/07/17 09:11 100 Physical Exam GENERAL: Awake, alert, well-appearing, in no acute distress HENT: Normocephalic, atraumatic. Oropharynx unremarkable. EYES: Normal conjunctiva. Sclera non-icteric. NECK: Supple. No nuchal rigidity. FROM. No JVD. RESPIRATORY: Clear to auscultation. CARDIAC: Regular rate, normal rhythm. Extremities warm and well perfused. Pulses equal. ABDOMEN: Soft, non-distended. No tenderness to palpation. No rebound or guarding. No masses. RECTAL: Deferred. MUSCULOSKELETAL: Chest examination reveals no tenderness. The back is symmetrical on inspection without obvious abnormality. There is no CVA tenderness to palpation. No joint edema. LOWER EXTREMITIES: Calves are equal size bilaterally and non-tender. No edema. No discoloration. NEURO: Normal sensorium. No sensory or motor deficits noted. SKIN: No rash or jaundice noted. Medical Decision & Procedures ER Provider Diagnostic Interpretation: Radiology results as stated below per my review and radiologist interpretation: CT ANGIOGRAM OF THE CHEST CLINICAL HISTORY: Tachycardia. Lung carcinoma. Elevated d-dimer. COMPARISON STUDY: PET/CT scan performed July 11, 2017 TECHNIQUE: Following the IV administration of 93 mL of Optiray-320, CT angiogram of the thorax was performed from the thoracic inlet to the lung bases utilizing the pulmonary embolus protocol. Images are reviewed in the axial, sagittal, and coronal planes. IV contrast was administered without complication. MIP imaging was performed. A dose lowering technique was utilized adhering to the principles of ALARA. CT DOSE: 610.43 mGy.cm FINDINGS: There is evidence for interval left upper lobe lobectomy with resection of the 1.6 cm left upper lobe pulmonary nodule. There is also evidence for mediastinal lola dissection. No pathologically enlarged axillary mediastinal or hilar lymph nodes were visualized. There was no evidence of thoracic aortic dilatation. There were no pulmonary artery filling defects to indicate acute pulmonary embolism. There is a small left pulmonary vein thrombus, likely postsurgical. There is a [id number] left pleural effusion There is no evidence of focal pulmonary consolidation. There are scattered areas of presumed atelectatic change. IMPRESSION: 1. Interval left upper lobectomy with resection of the left upper lobe pulmonary mass 2. No evidence of acute pulmonary embolism 3. Small left pulmonary vein thrombus likely postsurgical 4. Interval development of a [id number] left pleural effusion Electronically signed by: Abran Deras M.D. 08/07/2017 10:36 AM Laboratory Results 08/07/17 09:10 Red Blood Count 4.90, Mean Corpuscular Volume 87.8, Mean Corpuscular Hemoglobin 30.0, Mean Corpuscular Hemoglobin Concent 34.2, Mean Platelet Volume 8.9 08/07/17 09:10 Test 08/07/17 09:10 08/07/17 09:30 08/07/17 09:35 08/07/17 10:15 White Blood Count 25.21 K/uL (4.8-10.8) Red Blood Count 4.90 M/uL (4.7-6.1) Hemoglobin 14.7 g/dL (14.0-18.0) Hematocrit 43.0 % (42-52) Mean Corpuscular Volume 87.8 fL (80-100) Mean Corpuscular Hemoglobin 30.0 pg (25-34) Mean Corpuscular Hemoglobin Concent 34.2 g/dl (32-36) Platelet Count 173 K/uL (130-400) Mean Platelet Volume 8.9 fL (7.4-10.4) RDW Standard Deviation 40.8 fL (36.4-46.3) RDW Coefficient of Variation 12.8 % (11.5-14.5) Nucleated RBC Absolute Count (auto) 0.02 K/uL (0-0) Neutrophils % (Manual) 97.4 % Lymphocytes % (Manual) 1.7 % Eosinophils % (Manual) 0.9 % Nucleated Red Blood Cells % 0.1 % Neutrophils # (Manual) 24.55 K/uL (1.4-6.5) Total Absolute Neutrophils 24.55 K/uL (1.4-6.5) Lymphocytes # (Manual) 0.43 K/uL (1.2-3.4) Total Absolute Lymphocytes 0.43 K/uL (1.2-3.4) Eosinophils # (Manual) 0.23 K/uL (0-0.5) Red Blood Cell Morphology Unremarkable Est Creatinine Clear Calc Drug Dose 78.2 ml/min Estimated GFR () 83.5 Estimated GFR (Non- 72.1 BUN/Creatinine Ratio 19.9 (10-20) Calcium Level 8.0 mg/dl (8.5-10.1) Magnesium Level 2.0 mg/dl (1.8-2.4) Total Bilirubin 1.0 mg/dl (0.2-1) Direct Bilirubin 0.2 mg/dl (0-0.2) Aspartate Amino Transf (AST/SGOT) 15 U/L (15-37) Alanine Aminotransferase (ALT/SGPT) 37 U/L (12-78) Alkaline Phosphatase 86 U/L (45-117) Total Creatine Kinase 31 U/L (39-308) Creatine Kinase MB 1.1 ng/ml (0.5-3.6) Creatine Kinase MB Ratio 3.5 (0-3.0) Troponin I < 0.015 ng/ml (0-0.045) Total Protein 6.4 gm/dl (6.4-8.2) Albumin 3.3 gm/dl (3.4-5.0) Thyroid Stimulating Hormone (TSH) 2.060 uIu/ml (0.300-4.500) Bedside Hemoglobin 14.3 g/dl (14.0-18.0) Bedside Hematocrit 42 % (42-52) Bedside Sodium 137 mEq/L (135-144) Bedside Potassium 3.3 mEq/L (3.3-5.0) Bedside Chloride 93 mEq/L (101-112) Bedside Total CO2 32 mEq/l (24-31) Anion Gap 15.0 mmol/L (16-25) Bedside Blood Urea Nitrogen 23 mg/dl (7-18) Bedside Creatinine 1.0 mg/dl (0.6-1.3) Bedside Glucose (other) 110 mg/dl (70-99) Bedside Ionized Calcium (Josue) 1.05 mmol/l (1.12-1.32) Bedside D-Dimer > 450 ng/mlFEU (0-450) Urine Color YELLOW Urine Appearance CLEAR (CLEAR) Urine pH 7.0 (4.5-7.5) Urine Specific [place] 1.024 (1.000-1.030) Urine Protein NEG (NEG) Urine Glucose (UA) NEG (NEG) Urine Ketones NEG (NEG) Urine Occult Blood NEG (NEG) Urine Nitrite NEG (NEG) Urine Bilirubin NEG (NEG) Urine Urobilinogen NEG (NEG) Urine Leukocyte Esterase NEG (NEG) Labs reviewed by ED physician. Medications Administered Medications (Trade) Dose Ordered Sig/Godwin Route Start Time Stop Time Status Last Admin Dose Admin Sodium Chloride 1,000 ml @ 999 mls/hr Q1H1M STAT IV 08/07/17 09:20 08/07/17 10:20 DC 08/07/17 10:56 999 MLS/HR Potassium Chloride (Alicia Ciel Elix) 40 meq NOW STAT PO 08/07/17 09:49 08/07/17 09:51 DC 08/07/17 11:03 40 MEQ ECG Per My Interpretation Indication: weakness Rate (beats per minute): 103 Rhythm: sinus tachycardia Findings: other (No ST elevation or depression, normal axis) ED Course 914: Past medical records reviewed. The patient was evaluated in room B2. A complete history and physical examination was performed. 0920: Sodium Chloride 1000 ml @ 999 mls/hr IV 0949: Potassium Chloride 40meq PO 1000: Ioversol 100ml IV 1230: Upon reexamination the patient is resting comfortably. I discussed results and treatment plan with the patient. He verbalizes agreement and understanding. The patient is ready for discharge. Medical Decision Differential diagnosis: Etiologies such as viral syndrome, otitis, pharyngitis, pneumonia, influenza, meningitis, urinary tract infection, sepsis, bacteremia, as well as others were entertained. This is a 76-year-old male who presents the emergency department complaining of tachycardia. The patient recently started chemotherapy and was started on Neulasta hence the elevation in his white blood cell count. It sounds as if the patient was having rigors last evening therefore blood cultures were obtained. He does have an elevation in his d-dimer therefore he was sent for CAT scan of the chest which is concerning for new pleural effusion. Based on these findings I discussed the case with both Dr. Logan as well as Dr. Rut Cesar who both felt that the patient was safe enough to be discharged home however they stressed for the patient to return if he develops any fevers or altered mental status. While in the emergency department the patient was given a normal saline bolus and his potassium was repleted. Patient and family were in agreement with the treatment plan. Medication Reconcilliation Current Medication List: was personally reviewed by me Blood Pressure Screening Patient's blood pressure: Elevated blood pressure Blood pressure disposition: Referred to PCP Consults Time Called: 1056 Consulting Physician: Dr. Logan - [facility] [place] [facility] [place] Returned Call: [phone] I discussed the patient's case with Dr. Logan. He recommended that blood cultures be drawn from the patient. Impression Primary Impression: Tachycardia Scribe Attestation The scribe's documentation has been prepared under my direction and personally reviewed by me in its entirety. I confirm that the note above accurately reflects all work, treatment, procedures, and medical decision making performed by me. Departure Information Dispostion Home / Self-Care Referrals Cristo Kirkpatrick M.D. (PCP) Forms Call Back Authorization, HOME CARE DOCUMENTATION FORM, IMPORTANT VISIT INFORMATION Patient Instructions My [facility] Additional Instructions Follow up with Dr Piña's office tomorrow Return for Altered Mental status, rigors Culture results are usually available in approx 48 hours You have been examined and treated today on an emergency basis only. This is not a substitute for, or an effort to provide, complete comprehensive medical care. It is impossible to recognize and treat all injuries or illnesses in a single emergency department visit. It is therefore important that you follow up closely with Dr Kirkpatrick. Call as soon as possible for an appointment. Thank you for your time and consideration. I look forward to speaking with you again soon. Please don't hesitate to call us if you have any questions.
[2017-08-07 09:44] LABS: ISTAT IONIZED CALCIUM 1.05 mmol/l (1.12-1.32); ISTAT POTASSIUM 3.3 mEq/L (3.3-5.0)
[2017-08-07] MEDS ORDERED: POTASSIUM CHLORIDE 20 MEQ/15 ML UDC PO STA (09:49)
[2017-08-07 09:58] LABS: ALBUMIN 3.3 gm/dl (3.4-5.0); ALT/SGPT 37 U/L (12-78); AST/SGOT 15 U/L (15-37); BLOOD UREA NITROGEN 20 mg/dl (7-18); CARBON DIOXIDE 30 mmol/L (21-32); CREATININE 1.02 mg/dl (0.60-1.40); GLUCOSE 107 mg/dl (70-99); POTASSIUM 3.3 mmol/L (3.5-5.1); SODIUM 135 mmol/L (136-145)
[2017-08-07] MEDS ORDERED: OPTIRAY 320 IV PRN (10:00)
[2017-08-07 10:09] LABS: ALKALINE PHOSPHATASE 86 U/L (45-117); CKMB 1.1 ng/ml (0.5-3.6); TOTAL PROTEIN 6.4 gm/dl (6.4-8.2)
[2017-08-07 10:11] VITALS: O2SAT 96
--- NOTE | 2017-08-07 10:37 | DIAGNOSTIC IMAGING REPORT ---
CT ANGIOGRAM OF THE CHEST CLINICAL HISTORY: Tachycardia. Lung carcinoma. Elevated d-dimer. COMPARISON STUDY: PET/CT scan performed July 11, 2017 TECHNIQUE: Following the IV administration of 93 mL of Optiray-320, CT angiogram of the thorax was performed from the thoracic inlet to the lung bases utilizing the pulmonary embolus protocol. Images are reviewed in the axial, sagittal, and coronal planes. IV contrast was administered without complication. MIP imaging was performed. A dose lowering technique was utilized adhering to the principles of ALARA. CT DOSE: 610.43 mGy.cm FINDINGS: There is evidence for interval left upper lobe lobectomy with resection of the 1.6 cm left upper lobe pulmonary nodule. There is also evidence for mediastinal lola dissection. No pathologically enlarged axillary mediastinal or hilar lymph nodes were visualized. There was no evidence of thoracic aortic dilatation. There were no pulmonary artery filling defects to indicate acute pulmonary embolism. There is a small left pulmonary vein thrombus, likely postsurgical. There is a [id number] left pleural effusion There is no evidence of focal pulmonary consolidation. There are scattered areas of presumed atelectatic change. IMPRESSION: 1. Interval left upper lobectomy with resection of the left upper lobe pulmonary mass 2. No evidence of acute pulmonary embolism 3. Small left pulmonary vein thrombus likely postsurgical 4. Interval development of a [id number] left pleural effusion Electronically signed by: Abran Deras M.D. 08/07/2017 10:36 AM Dictated Date/Time: 08/07/2017 10:29 AM
--- NOTE | 2017-08-07 12:47 | Medical Consult ---
Consultation Note Date of Service Aug 07, 2017. Consultation Note Consult Dictated #[id number]
[2017-08-07 12:50] VITALS: BP 174/92; PULSE 95; O2SAT 99
--- NOTE | 2017-08-07 13:31 | CONSULTATION REPORT ---
DATE OF CONSULTATION: 08/07/2017 REASON FOR CONSULTATION: Recent lung resection. 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 The patient has a history of bilateral lung cancer. The patient had a right middle lobectomy approximately 22 years ago and did not require any additional therapy and was doing well. Recently, the patient had a chest x-ray that showed concern for a left lung nodule which was confirmed by CT/PET scan. The patient was ultimately referred to Dr. Tracy and Dr. Tracy performed a video mediastinoscopy as well as a robotic-assisted thoracoscopic left upper lobectomy on July 12 of this year. The patient's postoperative course from his recent mediastinoscopy and left upper lobectomy were uneventful and the patient was discharged home in stable condition on postoperative day #2. The patient followed up with Dr. Tracy approximately 1 week following discharge from the hospital and was noted to be doing well. A referral was put into place with Dr. Logan of hematology/oncology for plans to initiate chemotherapy. The patient notes that he did not require an A-port placement and he was initiated on grindstone-based chemotherapy, which was initiated approximately 3 days ago on August 04. The patient says that the day after his chemotherapy on August 05 he did receive a Neulasta injection and was initially tolerating his chemotherapy well. The patient says that he has not yet begun radiation therapy as this is to be done at the conclusion of his chemotherapy to the best of his knowledge. As stated previously, the patient was doing well following his chemotherapy; however, last night while the patient was watching television, he developed some palpitations along with tachycardia with associated chest heaviness. He said that he did get somewhat diaphoretic, but he denies any chills or rigors. He did admit to some dyspnea on exertion as well as lightheadedness and fatigue. I questioned the patient on a litany of other symptoms and with his current presentation, he did not have any falls or headache. He denies any neck pain. He denies any visual changes or tinnitus. No vertigo was noted but again he did have lightheadedness. He denies any epistaxis or rhinorrhea. He denies any sore throat or dysphagia. Again, there is no neck pain noted. He did note some chest heaviness with his palpitations. Again, he did have dyspnea on exertion. He denies any cough or hemoptysis. He denies any fevers, shakes, rigors or chills but did have diaphoresis. He denies any skin rashes. He notes that he did not have any abdominal pain, nausea, vomiting, diarrhea, bright red blood per rectum or melena. He denies any dysuria or urinary urgency or frequency. He does deny any myalgias. He has no history of DVT or PE. Because of the above symptomatology, the patient did present to the Emergency Department and was seen by Dr. Gerardo Dickerson. The patient did have labs drawn where white blood cell count was 25.2. His hemoglobin, hematocrit and platelet count were all noted to be within normal range. His neutrophil count was noted to be 24.55. Coagulation studies revealed an elevated D-dimer, a urinalysis was negative for concern for urinary tract infection and a chemistry profile showed sodium and potassium were 135 and 3.3. His BUN and creatinine were 20 and 1.0. He did not have any noted elevation of his cardiac enzymes and TSH was within the normal range. Because of the D-dimer findings in his presentation, a CT scan of the chest was performed that did not show any evidence of acute pulmonary emboli. There was a small to moderate left pleural effusion noted that did appear to be a new finding when compared to a comparison for postoperative chest x-rays. There is no evidence of infiltrative change of his lungs. Blood cultures were drawn and the patient did receive intravenous fluids as well as potassium supplementation. I did discuss with Dr. Gerardo Dickerson and he notes the patient has clinically improved with administration of intravenous fluids. In addition to what is noted above, the patient does note some radicular pain on his left chest wall in the T8-T9 region. PAST MEDICAL HISTORY: Includes the followin. History of lung cancer requiring right middle lobectomy 22 years ago. 2. Recent diagnosis of nonsmall cell lung cancer stage IIIA. 3. History of prostate cancer. 4. Hyperlipidemia. 5. GERD. 6. Cholecystectomy. 7. Herniorrhaphy. PAST SURGICAL HISTORY: Includes: 1. Right middle lobectomy via thoracotomy 22 years ago. 2. Left upper lobectomy and mediastinoscopy on July 12 of this year. ALLERGIES: None. OUTPATIENT MEDICATIONS: Include: 1. Tylenol 650 mg every 6 hours. 2. Aspirin 81 mg daily. 3. Colace 100 mg twice daily. 4. Nexium 40 mg daily. 5. Folic acid 1 tablet daily. 6. Xalatan eyedrops at bedtime. 7. Multivitamin daily. 8. Aleve as needed. 9. Nortriptyline 100 mg at bedtime. 10. Zofran every 8 hours as needed for nausea. 11. Percocet as needed for pain. SOCIAL HISTORY: The patient is a former smoker and he did have exposure to [employer] when he was serving in the in [employer]. FAMILY HISTORY: Positive for prostate cancer. REVIEW OF SYSTEMS: As noted above. PHYSICAL EXAMINATION: VITAL SIGNS: The patient is noted to be febrile with a temperature of 37.2. There were no recorded fevers while he was in the Emergency Department. His pulse revealed a regular rate of 93 beats per minute, respiratory rate is 16 and unlabored, blood pressure is 143/75. There are no recorded episodes of hypotension while he was in the Emergency Department, pulse ox 96% on room air. GENERAL: The patient is alert. He is oriented x3. He is in no distress. SKIN: Warm with good turgor. No rashes are noted. HEENT: Head is atraumatic, normocephalic. EYES: Pupils equal, round and reactive to light and accommodation. His extraocular motions are intact. EARS: Auditory acuity is grossly intact. NOSE: Nasal patency was intact. MOUTH: Has some dry mucous membranes. NECK: Supple. There is no nuchal rigidity. The patient's mediastinoscopy incision is well healed without any swelling, erythema or signs of infection. CARDIOVASCULAR: Regular rate and rhythm. LUNGS: The patient's lungs revealed he was not using accessory muscles to aid in respirations. There was a slight decrease of his breath sounds at the left base. No wheezing was noted. There are no rhonchi appreciated. The patient's chest wall was examined and all of his robotic surgical incisions are approximated and healing well. There is no erythema or signs of infection. ABDOMEN: Soft, nontender, nondistended. EXTREMITIES: Revealed no cyanosis, clubbing, or edema. No calf tenderness is noted. The patient's radial pulses were 2+ bilaterally. NEUROLOGIC: Revealed cranial nerves II through XII are grossly intact. He can move all 4 extremities, answer questions appropriately without signs of neurologic deficit. DIAGNOSTIC DATA: As noted above. IMPRESSION: A 76-year-old male with recent diagnosis of nonsmall cell lung cancer, presents with palpitations and tachycardia. PLAN: We have been asked to comment on the patient's current clinical impression, certainly there is concern with recent chemotherapy, the patient has underlying infection; however, in the absence of fever, this appears to be less likely. The patient does have a leukocytosis which may be due to recent Neulasta administration. I have discussed with the patient that he does have a small to moderate left pleural effusion; however, he is not dyspneic at this time, so we will not intervene unless his clinical status changes. Blood cultures have been sent, we will follow for the results of these and intervene as indicated. There are no other signs of infection at this time. It could be the patient's current presentation may simply be due to dehydration or may be the result of his recent chemotherapy. Dr. Dickerson of the Emergency Department did speak with his oncologist, Dr. Logan who felt the patient could be safely discharged home, if okay with Dr. Tracy and I have discussed with Dr. Tracy via phone outlining all the above information and he feels the patient may be stable, and we will discharge him home. I have discussed with the patient that he should follow up in our office tomorrow, August 08 with a repeat chest x-ray. I have ordered the chest x-ray for the patient and I have instructed him come to the office at approximately 9:30 in the morning and we will see him at that time with further recommendations to follow. I did discuss with the patient and his family at bedside, spent approximately a half hour discussing with the patient that if there is any change in his clinical status, he should either call our answering service or report back to the Emergency Department for further care. I instructed the signs of concern would include but not limited to any new fevers, any shakes, rigors, chills, diaphoresis or altered mental status. The patient and his family expressed their understanding of the above and stated that they feel comfortable being discharged home. They do have our contact information should there be any change in his clinical status. As noted, we will follow up with the patient tomorrow morning, which is August 08. [facility]
== END 2017-08-07 12:52 | disposition home or self-care (01) ==
LOC: EDBD 09:02 → C.EDB 09:03
DX: R00.0 Tachycardia, unspecified (principal); J90 Pleural effusion, not elsewhere classified; C34.92 Malignant neoplasm of unspecified part of left bronchus or lung; Z90.2 Acquired absence of lung [part of]; E78.5 Hyperlipidemia, unspecified; K21.9 Gastro-esophageal reflux disease without esophagitis; Z79.82 Long term (current) use of aspirin; Z87.891 Personal history of nicotine dependence; Z85.46 Personal history of malignant neoplasm of prostate; Z80.42 Family history of malignant neoplasm of prostate

== ENCOUNTER → 2017-08-23 | Outpatient (CLI) | payer OTHER, MEDICARE ==
[~2017-08-23] MED LIST changes: +ONDA-170 PO; -ONDA8TAB6 PO
--- NOTE | 2017-08-23 09:56 | DIAGNOSTIC IMAGING REPORT ---
CHEST 2 VIEWS ROUTINE CLINICAL HISTORY: 76 years-old Male presenting with C34.90 Malignant neoplasm of lung, unspecified laterality, unspe. TECHNIQUE: PA and lateral views of the chest were obtained. COMPARISON: 07/21/[address] from 08/07/2017. FINDINGS: Atherosclerosis of aortic arch. Cardiac silhouette enlarged. Postsurgical changes of left upper lobectomy evidenced by suture margin along the superior left hilum. Elevation of the left hemidiaphragm. Residual lungs clear. No large pleural effusion or pneumothorax. Degenerative changes of the thoracic spine. Cholecystectomy clips noted. IMPRESSION: 1. Postsurgical changes of the left lung. Resolution of prior pleural effusion. No acute cardiopulmonary disease. Electronically signed by: Alfonzo Regalado M.D. 08/23/2017 9:55 AM Dictated Date/Time: 08/23/2017 9:53 AM
== END | disposition home or self-care (01) ==
LOC: C.RAD 09:25
PROVIDERS: ATTEND Surgery
DX: C34.90 Malignant neoplasm of unspecified part of unspecified bronchus or lung (principal)

== ENCOUNTER → 2018-01-12 | Outpatient (CLI) | payer OTHER, MEDICARE ==
[~2018-01-12] MED LIST changes: -ACET-1047 PO; +ACET-1311 PO; +ATV/1 PO; -CLC100 PO; +DLM30 PO; -FOLI1TAB8 PO; -NXM/40 PO; -ONDA-170 PO; -OXYC-57 PO; +PRLSR20 PO
[2018-01-12 14:10] VITALS: BP 116/69; PULSE 118; TEMP 36.6; O2SAT 97
--- NOTE | 2018-01-12 16:26 | Radiation Oncology Follow-Up ---
Radiation Oncology Follow-Up Date of Visit Jan 12, 2018. Reason For Visit One-month follow-up Radiation Completion Date 12/08/17 Diagnosis (1) Primary adenocarcinoma of upper lobe of left lung Status: Acute Onset Date: 07/12/2017 Stage: Not Applicable Permanent Comment: CXR revealing left upper lobe lesion, PET CT showing FDG avidity Status post robotic assisted thoracoscopy and left upper lobectomy, wedge resection with mediastinal lymphadenectomy and video mediastinoscopy Adenocarcinoma, grade 2 Stage pT1b pN2 M0 Status post 4 cycles of Cisplatin and Pemetrexed Status post completion of radiation therapy December 08, 2017. 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 He was initially diagnosed and treated in 2012 for an intermediate risk prostate cancer. Patient was treated with combined modality therapy including 6 months of hormonal suppression along with a prostate seed implant as boost followed by external radiation with IMRT and IGRT. Treatment was completed on May 29, 2013. Patient has been followed since then with stable PSAs. He tolerated the treatment extremely well and has had no significant sequelae from the treatment. More recently patient was found to have a small left lung lesion. He was seen by Dr. Tracy. A PET CT scan was performed preoperatively which showed FDG avid hilar adenopathy and lymph nodes. He therefore underwent a resection which confirmed a small peripheral lesion measuring 1.2 cm consistent with an invasive adenocarcinoma moderately differentiated. There was no visceral or lymphovascular invasion identified. The margins were clear by 5 cm. Lymph nodes from the R2 and are 4 region were benign with no metastatic adenocarcinoma. A lymph node from the level 6 region revealed metastatic adenocarcinoma measuring 2.2 cm with no extranodal extension. Lymph node from level 11 showed metastatic adenocarcinoma in 3 of 5 lymph nodes the largest measuring 1.2 cm with no extranodal extension identified. 12 additional regional nodes were excised with no metastatic adenocarcinoma. Level 10 lymph node and level 5 lymph nodes were benign. Therefore a total of 4 out of 12 lymph nodes were involved. There was no EGFR mutation and ALK 1 and ROS 1 were negative. Case: [id number]. Procedure was performed on July 12, 2017. Patient's case was discussed at our multidisciplinary lung cancer conference. Recommendation was to proceed with adjuvant chemotherapy followed by adjuvant radiation following NCCN Guidelines. Patient has been seen by Dr. Logan and discussed [facility]-[place] plus pemetrexed given IV every 3 weeks for 4 sessions. He has not completed his 4 cycles of chemotherapy. This began 2017 and completed October 06, 2017. With the first cycle of treatment he had tachycardia, high blood pressure, fever, and chills. He had profound muscle weakness which caused him to be nearly bedfast for a week. With the side effect of tachycardia he did present to the emergency room and was observed for 23 hours. He did not require a formal admission. With the second cycle of treatment he had similar symptoms for 2-3 days. With the third and fourth treatment he had less issues. All cycles were given on time and full dose. He is noted no change in his respiratory status. He has now returned to begin the process of radiation therapy. Status post completion of radiation therapy to the chest December 08, 2017. He received 5400 cGy. Interim History Over the past month he has noted a dry cough. He does become more short of breath easily. The shortness of breath began around the 20th fraction of treatment. He has had no fever. He had very mild dysphasia. This did not require any prescriptive medications. He did not develop any areas of skin irritation of the anterior or posterior chest. It is planned that he will be having a CT on January 25. He will be leaving for [place] in January. He will then return in April. Allergies Coded Allergies: No Known Allergies (Verified , 08/07/17) Home Medications Scheduled Acetaminophen (Tylenol), 650 MG PO Q4 Aspirin (Aspir-Low), 81 MG PO QAM Latanoprost (Xalatan 0.005% Oph Bea), 1 DROPS OPL HS Multiple Vitamins W/ Minerals (Centrum), 1 TAB PO QAM Naproxen (Aleve), 440 MG PO prn Nortriptyline (Pamelor), 100 MG PO HS Omeprazole (Prilosec), 20 MG PO DAILY Scheduled PRN Flurazepam Hcl (Dalmane), 30 MG PO HS PRN for Sleep Lorazepam (Ativan), 1 MG PO HS PRN for Shortness of Breath Review of Systems Gastrointestinal: Symptoms: Constipation GI Comments: dietary fiber Oral: Symptoms: No Problems Respiratory: Symptoms: Dry Cough, SOB With Exertion Skin: Symptoms: No Problems Additional Notes: He completed a distress management report and answered "no" to all questions other than he does have worry in regards to his long-term outcome. Physical Exam Vital Signs Date Time Temp Pulse Resp B/P (MAP) Pulse Ox O2 Delivery O2 Flow Rate FiO2 01/12/18 14:10 36.6 118 20 116/69 97 ECOG Performance Status: 0 Fatigue: None General Appearance: no apparent distress Eyes: normal inspection, EOMI ENT: normal ENT inspection, hearing grossly normal Respiratory/Chest: lungs clear, no respiratory distress, no accessory muscle use, + decreased breath sounds (On the left) Cardiovascular: no murmur, + tachycardia (118) Extremities: no pedal edema Neurologic/Psychiatric: no motor/sensory deficits, alert, normal mood/affect Skin: warm/dry Pain Management Patient Reports Pain: No (some joint discomfort) Initial Pain Intensity: 0.0 Pain Management Plan He denies pain therefore requires no pain management. Laboratory Laboratory Results: not applicable Pathology Pathology Results: were reviewed, and pertinent findings noted in HPI Imaging Imaging Studies: not applicable Assessment & Plan Plan: He was seen today by Dr. Suarez. We discussed the side effect of dry cough. There is a concern for early radiation pneumonia. He will be having a CT on January 25, 2018. With the cough, mild shortness of breath, and mild tachycardia he was in agreement to complete a tapering dose of prednisone. He will start at 40 mg every 3 days and then taper every 3 days with a final 5 mg lasting for over [address] is complete this will be reviewed by our office. He will otherwise return for a visit when he is back home in April. He may call if he has any questions or concerns in the interim. Total Time In Follow-Up I spent 20 minutes speaking to the patient in performing examination. I spent 15 minutes reviewing information and completing this note. [place] Copy To Cristo Kirkpatrick M.D.; Yovani Bender D.O.
== END | disposition home or self-care (01) ==
LOC: C.ONC 13:39
PROVIDERS: ATTEND Physician Assistant Medical
DX: Z08 Encounter for follow-up examination after completed treatment for malignant neoplasm (principal); Z92.3 Personal history of irradiation; Z85.118 Personal history of other malignant neoplasm of bronchus and lung

== ENCOUNTER → 2018-01-23 | Outpatient (CLI) | payer OTHER, MEDICARE ==
[~2018-01-23] MED LIST changes: +OPTIRAY 320 IV PRN
--- NOTE | 2018-01-23 14:08 | DIAGNOSTIC IMAGING REPORT ---
CT ABD/PELVIS IV AND ORAL CONT CLINICAL HISTORY: Lung carcinoma. COMPARISON STUDY: None. TECHNIQUE: Following the IV administration of 119 mL of Optiray-320, CT scan of the abdomen and pelvis was performed from the lung bases to the proximal femurs. Images are reviewed in the axial, sagittal, and coronal planes. IV contrast was administered without complication. A dose lowering technique was utilized adhering to the principles of ALARA. CT DOSE: FINDINGS: Lower chest: There is minimal subpleural interstitial thickening. There are no pleural effusions. There are postsurgical changes present. Liver: The contrast-enhanced liver is normal in size, contour, and attenuation. There is no intrahepatic biliary ductal dilatation. The hepatic veins and portal veins are patent. Gallbladder: Surgically absent Spleen: Normal in size and attenuation. Pancreas: Unremarkable. Adrenal glands: Unremarkable. Kidneys: There is left renal cortical scarring. There are multiple bilateral renal cysts. The largest cyst in the right measures 38 mm. The largest cyst on the left is a bilobed cyst measuring 39 mm. One of the right renal cyst demonstrates minimal rim calcification. There is no hydronephrosis. Bowel: There are no transition zones indicate bowel obstruction. The appendix appears normal. There is colonic diverticulosis. There is no evidence of acute diverticulitis. Peritoneum: There is no intraperitoneal free air or abdominal ascites. There is a small fat-containing left inguinal hernia Vasculature: The abdominal aorta is normal in course and caliber. Adenopathy: None. Pelvic viscera: Patient therapy seeds are visualized within the prostate. The prostate has a lobulated contour indenting the bladder base. Skeletal structures: No destructive osseous lesions are seen. IMPRESSION: No evidence of abdominal or pelvic metastatic disease. Electronically signed by: Abran Deras M.D. 01/23/2018 2:07 PM Dictated Date/Time: 01/23/2018 2:01 PM
--- NOTE | 2018-01-23 14:21 | DIAGNOSTIC IMAGING REPORT ---
CHEST CT WITH CONTRAST CT DOSE: 1577.46 mGy.cm HISTORY: Follow-up study in a patient with history of lung cancer. History of prior left upper lobectomy. Subsequent treatment strategy. CT TECHNIQUE: Multiaxial CT images of the chest were performed following the intravenous administration of contrast. A dose lowering technique was utilized adhering to the principles of ALARA. COMPARISON: CT abdomen and pelvis of same day, CTA chest 08/07/2017, PET CT 07/11/2017. FINDINGS: Homogeneous appearance of the thyroid. No pathologically enlarged lymph nodes are identified. Surgical suture material about the right hilum from prior lola dissection. Status post surgical resection of the prevascular lymph node, previously noted to be hypermetabolic on comparison PET/CT. Heart is upper limits of normal in size without pericardial effusion. Coronary arterial calcifications are present. The thoracic aorta demonstrates mild to moderate degree of mixed plaquing demonstrates no aneurysm or dissection. The opacified pulmonary arterial tree appears unremarkable. Resolution of the previously noted thrombus about the expected location of the superior left pulmonary vein. Postoperative changes from prior left upper lobectomy. There are multifocal irregular consolidative and groundglass opacities throughout the left lung, notably within the mid and upper portions, new from comparison study 08/07/2017. Decreased size of the previously noted left pleural effusion, now with only trace amount of left pleural fluid present. Mild subsegmental atelectasis about the right lung base with multiple punctate subpleural calcifications seen notably about the right lung base. No pneumothorax or suspicious pulmonary nodules or masses identified. No overt pulmonary edema. The central airways appear patent. Postoperative changes from prior cholecystectomy. No acute process of the imaged upper abdomen. Cortical scarring about the superior pole left kidney posteriorly. Mild nonspecific bilateral perinephric stranding. Bilateral gynecomastia. No suspicious lytic or blastic bony lesions identified. Degenerative changes of the shoulders and spine. Multilevel spondylitic spurring. IMPRESSION: 1. Postoperative changes from prior left upper lobectomy. No evidence of recurrent or metastatic disease within the chest. 2. There are new multifocal irregular consolidative and groundglass opacities about the left lung, notably within the mid and upper segments of the lower lobe, new from comparison study 08/07/2017. Radiation pneumonitis versus infectious or inflammatory pneumonitis are the primary differential considerations. Follow-up recommended. 3. Trace left pleural effusion, decreased in size from comparison. 4. Evidence of prior lola dissection without evidence of new adenopathy. Electronically signed by: Sergio Garza M.D. 01/23/2018 2:20 PM Dictated Date/Time: 01/23/2018 2:02 PM
== END | disposition home or self-care (01) ==
LOC: C.CTS 13:46
PROVIDERS: ATTEND Nurse Practitioner Family
DX: C34.90 Malignant neoplasm of unspecified part of unspecified bronchus or lung (principal); Z98.890 Other specified postprocedural states; J90 Pleural effusion, not elsewhere classified

== ENCOUNTER 2023-01-07 08:26 | Observation (INO) ==
--- NOTE | 2023-01-07 08:33 | Emergency Department Note ---
Impression & Plan Sepsis, Thrombocytopenia, Hypokalemia, Hypomagnesemia ED Provider Note NAME: CARTER PERDUE AGE: 82 SEX: M : 1940 ARRIVES VIA: Walk-In INFORMANT: Patient ED PROVIDER(S): Dr. 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 Symptoms started on Tuesday with diffuse myalgias and arthralgias. He has been having night sweats and sweating through the sheets. He has not actually checked his temperature. He denies any cough or congestion. He does have shortness of breath. No nausea or vomiting. No dysuria, urgency, or frequency. Does have some abdominal achiness. No other exacerbating or remitting factors. No recent chemo or radiation. PAST MEDICAL HISTORY:See Below PAST SURGICAL HISTORY:See Below FAMILY HISTORY:See Below SOCIAL HISTORY:See Below HOME MEDICATIONS:See Below ALLERGIES:See Below VITALS:See Below PHYSICAL EXAMINATION: GENERAL: Sitting up in bed, alert, well appearing, well nourished, no distress, non-toxic EYE EXAM: normal conjunctiva. PERRL and EOM's grossly intact. OROPHARYNX: no exudate, no erythema, lips, buccal mucosa, and tongue normal and mucous membranes are moist NECK: supple, no nuchal rigidity, no adenopathy, non-tender LUNGS: Clear to auscultation. Normal chest wall mechanics HEART: no murmurs, S1 normal and S2 normal ABDOMEN: abdomen soft, non-tender, normo-active bowel sounds, no masses, no rebound or guarding. SKIN: no rashes and no bruising UPPER EXTREMITIES: upper extremities are grossly normal. LOWER EXTREMITIES: No pitting edema. NEURO EXAM: Normal sensorium, cranial nerves II-XII grossly intact, normal spe ech, no gross weakness of arms, no gross weakness of legs. MEDICAL DECISION MAKING: Patient is an 82-year-old male who presents ER for above-stated complaint. IV was established blood work was obtained. External records reviewed. Labs show no significant leukocytosis and mild thrombocytopenia at 100. BMP with mild hypokalemia 3.3 and hypomagnesia him at 1.5. T. bili slightly up at 1.6. LFTs were unremarkable. Pro-Renan elevated 2. UA was clean. Viral panel was negative. Patient was given IV fluids as well as IV Rocephin. He was updated at bedside. CT of the chest was performed due to the hypoxia and he was placed on 1 L to 2 L nasal cannula. Blood pressures did drop into the 90s and trended back up with IV fluids. Discussed with the hospitalist for further evaluation management and treatment. Triage Nursing notes reviewed. Limited review of prior medical records performed Vital Signs: reviewed and remarkable for tachy Differential diagnosis: Differential diagnosis includes etiologies such as sepsis, UTI, pneumonia, metabolic, electrolyte abnormalities, cardiac sources, intracerebral event, toxicologic, neurological, as well as others were entertained. ER treatment provided: See below Diagnostics interpreted by me include EKG and cardiac monitoring as listed below: -Cardiac Monitoring: An order was placed for continuous cardiac monitoring. The monitor shows a rate of 92 with sinus rhythm. -ECG: none -Laboratory studies:Interpreted by me as stated above in MDM and shown below. Imaging studies: Xrays: As interpreted by me: Portable AP upright 1 view of the chest shows small pleural effusion left lower lobe per my read CTs show: CT angio of the chest was unremarkable Consultation(s): As described in MDM Procedures:none Critical Care: I have personally spent 31 minutes of critical care time in the direct management of this patient. This includes bedside care, interpretation of diagnostic studies, and testing, discussion with consultants, patient, and family members, and other required patient management activities. This 31 minutes is in excess of all separately billable procedures. Past Med/Surg History Medical History GERD (gastroesophageal reflux disease) Lung cancer Seasonal allergies Surgical History History of cataract extraction History of laparoscopic cholecystectomy History of lobectomy of lung History of removal of cyst History of right inguinal hernia repair Status post bronchoscopy with biopsy Family History Mother Lymphoma Father Lung cancer Brother Renal cell cancer Other No family history of adverse response to anesthesia No family history of bleeding disorder Social History Smoking Status: Former smoker Tobacco Type: Cigarettes packs per day: 1; Do You Dip or Chew Tobacco: No; Hx Alcohol Use: No Hx Substance Use: No Preferred Language: Chinese Communication Ability: Effective Book Agent Required: No Beliefs That Will Affect Care: None Current Living Situation: Spouse Feels Safe at Home: Yes Assistive Devices: Glasses Allergies Allergies Allergy/AdvReac Type Severity Reaction Status Date / Time No Known Drug Allergies Allergy Verified 01/07/23 09:53 Home Meds Home Medications Medication Instructions Recorded Confirmed aspirin 81 mg tablet,delayed 81 mg PO DAILY 12/18/18 01/07/23 release loratadine 10 mg tablet (Claritin) 10 mg PO DAILY PRN Allergy Symptoms 12/18/18 01/07/23 multivitamin 1 tab PO QAM 12/18/18 01/07/23 nortriptyline 50 mg capsule 100 mg PO HS 12/18/18 01/07/23 omeprazole 20 mg tablet,delayed 20 mg PO QAM 12/18/18 01/07/23 release carvedilol 12.5 mg tablet 12.5 mg PO BID 01/07/23 01/07/23 naproxen 250 mg tablet 500 mg PO BID 01/07/23 01/07/23 Results & Data (ED) Vital Signs Vital Signs - 24 hr 01/07/23 08:29 01/07/23 09:18 01/07/23 09:29 Temperature 36.7 C Temperature Source Oral Pulse Rate 101 H 108 H 108 H Pulse Rate [Right Finger] Pulse Rhythm Regular Pulse Strength Normal Respiratory Rate 20 24 Respiratory Effort / Characteristics Non-Labored Spontaneous Respiratory Depth Normal Respiratory Pattern Regular Blood Pressure 102/63 Blood Pressure [Right Arm] Blood Pressure Mean 76 Blood Pressure Mean [Right Arm] Blood Pressure Position Sitting Pulse Oximetry 93 90 Oxygen Delivery Method Room Air Room Air Oxygen Flow Rate 1 Sepsis Recent Fever Within 48 Hours Yes Sepsis New/Unexplained Change in Mental Status No Sepsis Action Taken by Nursing No Action Required 01/07/23 09:29 01/07/23 09:57 01/07/23 10:15 Temperature Temperature Source Pulse Rate Pulse Rate [Right Finger] 108 H 104 H 106 H Pulse Rhythm Pulse Strength Respiratory Rate 24 20 22 Respiratory Effort / Characteristics Non-Labored Non-Labored Non-Labored Respiratory Depth Normal Normal Normal Respiratory Pattern Blood Pressure Blood Pressure [Right Arm] 94/55 L 96/56 L 121/70 Blood Pressure Mean Blood Pressure Mean [Right Arm] 68 69 87 Blood Pressure Position Pulse Oximetry 90 92 90 Oxygen Delivery Method Nasal Cannula Room Air Room Air Oxygen Flow Rate 1 Sepsis Recent Fever Within 48 Hours Sepsis New/Unexplained Change in Mental Status Sepsis Action Taken by Nursing 01/07/23 10:56 Temperature Temperature Source Pulse Rate Pulse Rate [Right Finger] 102 H Pulse Rhythm Pulse Strength Respiratory Rate 24 Respiratory Effort / Characteristics Respiratory Depth Respiratory Pattern Blood Pressure Blood Pressure [Right Arm] 117/62 Blood Pressure Mean Blood Pressure Mean [Right Arm] 80 Blood Pressure Position Pulse Oximetry 97 Oxygen Delivery Method Nasal Cannula Oxygen Flow Rate 2 Sepsis Recent Fever Within 48 Hours Sepsis New/Unexplained Change in Mental Status Sepsis Action Taken by Nursing Laboratory Data 01/07/23 09:33 01/07/23 09:33 Lab Results 01/07/23 01/07/23 01/07/23 Range/Units 09:33 09:33 09:33 WBC 8.23 (4.8-10.8) K/ul RBC 5.09 (4.70-6.10) M/uL Hgb 15.4 (14.0-18.0) g/dl Hct 44.2 (42.0-52.0) % MCV 86.8 (80.0-100.0) fL MCH 30.3 (25.0-34.0) pg MCHC 34.8 (32.0-36.0) g/dL RDW Std Deviation 39.8 (36.4-46.3) fL RDW Coeff of Farzana 12.4 (11.5-14.5) % Plt Count 100 L (130-400) K/uL MPV 9.4 (9.4-12.4) fL Immature Gran % (Auto) 0.4 % Neut % (Auto) 96.3 % Lymph % (Auto) 1.0 % Gage % (Auto) 2.1 % Eos % (Auto) 0.1 % Baso % (Auto) 0.1 % Neut # (Auto) 7.93 H (1.40-6.50) K/uL Lymph # (Auto) 0.08 L (1.2-3.4) K/uL Gage # (Auto) 0.17 (0.11-0.59) K/uL Eos # (Auto) 0.01 (0-0.50) K/uL Baso # (Auto) 0.01 (0-0.2) K/uL Immature Gran # (Auto) 0.03 (0.01-0.20) K/uL PT 12.0 (9.0-12.0) Seconds INR 1.1 (0.9-1.1) Sodium 134 L (136-145) mmol/L Potassium 3.3 L (3.5-5.1) mmol/L Chloride 101 (98-107) mmol/L Carbon Dioxide 27 (21-32) mmol/L Anion Gap 6 (3-11) BUN 22 (6-23) mg/dl Creatinine 0.98 (0.6-1.4) mg/dl Est Cr Clr Drug Dosing 71.8 ml/min Est GFR ( Amer) 84.1 ml/min Est GFR (Non-Af Amer) 72.5 ml/min BUN/Creatinine Ratio 22.4 H (10-20) Glucose 126 H (70-99(Fasting)) mg/dl Lactate (0.4-2.0) mmol/L Calcium 8.9 (8.6-10.3) mg/dl Magnesium 1.5 L (1.7-2.4) mg/dl Total Bilirubin 1.6 H (0.2-1.0) mg/dl Direct Bilirubin 0.6 H (0-0.2) mg/dl AST 48 H (13-39) U/L ALT 38 (7-52) U/L Alkaline Phosphatase 69 (34-104) U/L Troponin I High Sens 19.1 (0-20) pg/ml Total Protein 6.4 (6.0-8.3) gm/dl Albumin 3.5 (3.4-5.0) gm/dl Lipase 11 (11-82) U/L Procalcitonin (0-0.5) ng/ml Anaplasma Smear See Comment Babesia Smear See Comment Lyme Disease IgG Ab (Negative) Lyme Disease IgM Ab (Negative) 01/07/23 01/07/23 01/07/23 Range/Units 09:33 09:33 09:33 WBC (4.8-10.8) K/ul RBC (4.70-6.10) M/uL Hgb (14.0-18.0) g/dl Hct (42.0-52.0) % MCV (80.0-100.0) fL MCH (25.0-34.0) pg MCHC (32.0-36.0) g/dL RDW Std Deviation (36.4-46.3) fL RDW Coeff of Farzana (11.5-14.5) % Plt Count (130-400) K/uL MPV (9.4-12.4) fL Immature Gran % (Auto) % Neut % (Auto) % Lymph % (Auto) % Gage % (Auto) % Eos % (Auto) % Baso % (Auto) % Neut # (Auto) (1.40-6.50) K/uL Lymph # (Auto) (1.2-3.4) K/uL Gage # (Auto) (0.11-0.59) K/uL Eos # (Auto) (0-0.50) K/uL Baso # (Auto) (0-0.2) K/uL Immature Gran # (Auto) (0.01-0.20) K/uL PT (9.0-12.0) Seconds INR (0.9-1.1) Sodium (136-145) mmol/L Potassium (3.5-5.1) mmol/L Chloride (98-107) mmol/L Carbon Dioxide (21-32) mmol/L Anion Gap (3-11) BUN (6-23) mg/dl Creatinine (0.6-1.4) mg/dl Est Cr Clr Drug Dosing ml/min Est GFR ( Amer) ml/min Est GFR (Non-Af Amer) ml/min BUN/Creatinine Ratio (10-20) Glucose (70-99(Fasting)) mg/dl Lactate 1.2 (0.4-2.0) mmol/L Calcium (8.6-10.3) mg/dl Magnesium (1.7-2.4) mg/dl Total Bilirubin (0.2-1.0) mg/dl Direct Bilirubin (0-0.2) mg/dl AST (13-39) U/L ALT (7-52) U/L Alkaline Phosphatase (34-104) U/L Troponin I High Sens (0-20) pg/ml Total Protein (6.0-8.3) gm/dl Albumin (3.4-5.0) gm/dl Lipase (11-82) U/L Procalcitonin 2.19 H (0-0.5) ng/ml Anaplasma Smear Babesia Smear Lyme Disease IgG Ab Negative (Negative) Lyme Disease IgM Ab Negative (Negative) Administered Medications Doxycycline Hyclate 100 mg/ (Dextrose) 110 mls @ 50 mls/hr IV Q12H HOANG Stop: 01/09/23 11:59 Last Admin: 01/07/23 12:39 Dose: 50 mls/hr Documented By: MNE Discontinued Medications Sodium Chloride (Nss 1000ml) 1,000 mls @ 999 mls/hr IV .Q1H1M ONE Stop: 01/07/23 09:56 Last Infusion: 01/07/23 10:51 Dose: 0 mls/hr Documented By: NRGeri Admin: 01/07/23 09:50 Dose: 999 mls/hr Documented By: JEFFREY Ceftriaxone Sodium (Rocephin) 2,000 mg in 70 mls @ 140 mls/hr IV NOW STA Stop: 01/07/23 09:47 Last Infusion: 01/07/23 10:24 Dose: 0 mls/hr Documented By: Admin: 01/07/23 09:54 Dose: 140 mls/hr Documented By: JEFFREY Potassium Chloride (K Mac / Wtr) 10 meq in 100 mls @ 100 mls/hr IV Q1H HOANG Stop: 01/07/23 12:59 Last Admin: 01/07/23 13:58 Dose: 100 mls/hr Documented By: Infusion: 01/07/23 12:51 Dose: 100 mls/hr Documented By: NRGeri Admin: 01/07/23 11:51 Dose: 100 mls/hr Documented By: JEFFREY Magnesium Sulfate/Dextrose (Magnesium Sulfate / D5w) 1 gm in 100 mls @ 100 mls/hr IV NOW STA Stop: 01/07/23 11:58 Last Admin: 01/07/23 13:08 Dose: 100 mls/hr Documented By: DEAN Parenteral Electrolytes (Plasma-Lyte A Ph 7.4) 1,000 mls @ 999 mls/hr IV .Q1H1M STA Stop: 01/07/23 12:51 Last Infusion: 01/07/23 13:34 Dose: 0 mls/hr Documented By: Admin: 01/07/23 12:16 Dose: 999 mls/hr Documented By: JEFFREY Parenteral Electrolytes (Plasma-Lyte A Ph 7.4) 250 mls @ 999 mls/hr IV .Q16M STA Stop: 01/07/23 12:06 Last Infusion: 01/07/23 13:50 Dose: 0 mls/hr Documented By: Admin: 01/07/23 13:34 Dose: 999 mls/hr Documented By: DEAN Ioversol (Ioversol 350 Mg 125ml Prefilled Syringe) 118 ml IV ONCE ONE Stop: 01/07/23 10:41 Last Admin: 01/07/23 10:40 Dose: 118 ml Documented By: HEIDI Magnesium Oxide (Magnesium Oxide 400 Mg Tab) 400 mg PO ONE ONE Stop: 01/07/23 11:59 Last Admin: 01/07/23 12:19 Dose: 400 mg Documented By: JEFFREY Imaging Data Radiologist's Impression: Chest X-Ray 01/07/23 08:40 XR chest 1V portable HISTORY: Sepsis COMPARISON: Chest CT 12/15/2022. Chest x-ray 07/14/2017. FINDINGS: No pneumothorax. The heart remains mildly enlarged. No acute fractures identified. Stable linear scarlike density within the right midlung zone. No evidence for pulmonary edema. A small left pleural effusion and left basilar densities persist. There is chronic volume loss within the left hemithorax with left suprahilar scarring and mild left tracheal deviation. This remains unchanged. No new focal lung consolidations identified. IMPRESSION: Chronic/postoperative changes again noted within the left hemithorax. Otherwise, no acute process within the chest. ACT 112: Negative or not required by law. Electronically signed by: Chance Stout M.D. 01/07/2023 9:35 AM Chest CTA 01/07/23 09:54 CT ANGIOGRAM OF THE CHEST CLINICAL HISTORY: Dyspnea. lung cancer. COMPARISON STUDY: Chest x-ray dated 01/07/2023. Chest CT dated 12/15/2022. TECHNIQUE: Following the IV administration of 118 cc of Optiray 350, CT angiogram of the chest was performed from the upper abdomen to the thoracic inlet utilizing the pulmonary embolus protocol. Images are reviewed in the axial, sagittal, and coronal planes. 3-D MIPS images are created and assessed. IV contrast was administered without complication. A dose lowering technique was utilized adhering to the principles of ALARA. CT DOSE: 959.83 mGy.cm FINDINGS: Thyroid: Imaged portions of the thyroid gland are normal in size and attenuation. Thoracic aorta: There is atherosclerotic calcification of the thoracic aorta, which is normal in caliber and demonstrates standard 3-vessel arch anatomy. No dissection is seen. Pulmonary vasculature: The pulmonary trunk is normal in caliber. There are no filling defects identified in main, lobar, or segmental pulmonary branches to suggest pulmonary embolus. Heart: The heart is mildly enlarged noting a small pericardial effusion. The coronary arteries are densely calcified. Lungs and pleural spaces: Evaluation of the lung parenchyma is degraded by motion artifact. Emphysematous changes observed. The trachea and central airways are clear. Again seen is postsurgical change from right middle lobe and left upper lobe resection. There is volume loss in the left lung with compensatory hyperinflation of the right lung and leftward shift of the mediastinum. A trace chronic pleural collection at the left lung base with surrounding pleural thickening is unchanged. Foci of parenchymal scarring are seen throughout both lungs. There are scattered calcified granulomas. Fibrotic change at the left apex is unchanged and likely treatment-related. There is no superimposed airspace consolidation typical for pneumonia. Air trapping is suggested in the lower lungs bilaterally. Mediastinum: There is no mediastinal lymphadenopathy. Gabriella: Clear. Axillae: There is no axillary lymphadenopathy. Upper abdomen: A 3.4 cm cyst is partially visualized in left kidney. The gallbladder is surgically absent. Skeletal structures: The skeletal structures are osteopenic. Degenerative change and mild kyphoscoliosis is noted in the thoracic spine. Arthritic change is seen in the shoulders. No lytic or blastic bony lesions are seen. IMPRESSION: 1. There is no evidence of pulmonary embolus in the main, lobar, or segmental pulmonary arteries. 2. Cardiomegaly and emphysema with chronic and postsurgical changes as above. 3. There is no superimposed airspace consolidation typical for pneumonia. 4. A trace chronic pleural collection at the left lung base is unchanged and likely on a postsurgical basis. 5. Additional findings as above. ACT 112: Negative or not required by law. Electronically signed by: Julius Thomas M.D. 01/07/2023 10:54 AM Discharge Plan Visit Data Chief Complaint: Flu Like Symptoms Stated Complaint: FEVER,CHILLS,WEAKNESS,DEHYDRATION,SOB,-COVID ED Provider: Tj Segundo Discharge Problem: Sepsis, Thrombocytopenia, Hypokalemia, Hypomagnesemia Patient Disposition: Admitted As Inpatient Discharge Instructions Interventions: ED Discharge Assessment Last Done: 01/07/23 12:25
[2023-01-07] MEDS ORDERED: SODIUM CHLORIDE 0.9% 1000ML 1,000 ML IV ONE (08:56)
[2023-01-07] MEDS ORDERED: cefTRIAXone SODIUM 2,000 MG/70 ML BAG IV STA (09:18)
--- NOTE | 2023-01-07 09:36 | XRay Report ---
XR chest 1V portable HISTORY: Sepsis COMPARISON: Chest CT 12/15/2022. Chest x-ray 07/14/2017. FINDINGS: No pneumothorax. The heart remains mildly enlarged. No acute fractures identified. Stable l inear scarlike density within the right midlung zone. No evidence for pulmonary edema. A small left p leural effusion and left basilar densities persist. There is chronic volume loss within the left shayne thorax with left suprahilar scarring and mild left tracheal deviation. This remains unchanged. No new focal lung consolidations identified. IMPRESSION: Chronic/postoperative changes again noted within the left hemithorax. Otherwise, no acute process wit hin the chest. ACT 112: Negative or not required by law. Electronically signed by: Chance Stout M.D. 01/07/2023 9:35 AM
[2023-01-07 10:13] LABS: Albumin Level 3.5 gm/dl (3.4-5.0); BUN Creatinine Ratio 22.4 (10-20); Bilirubin Direct 0.6 mg/dl (0-0.2); Bilirubin,Total 1.6 mg/dl (0.2-1.0); Calcium 8.9 mg/dl (8.6-10.3); Creatinine Clr Calc Pharmacy 71.8 ml/min; Est GFR (African American) 84.1 ml/min; Est GFR (Non-African American) 72.5 ml/min; Magnesium 1.5 mg/dl (1.7-2.4); Potassium 3.3 mmol/L (3.5-5.1); Total Protein 6.4 gm/dl (6.0-8.3)
[2023-01-07 10:15] LABS: INR 1.1 (0.9-1.1)
[2023-01-07 10:16] LABS: Troponin I High Sensitivity 19.1 pg/ml (0-20)
[2023-01-07 10:18] LABS: Hematocrit (blood only) 44.2 % (42.0-52.0); Hemoglobin 15.4 g/dl (14.0-18.0); Mean Corpuscular Hemoglobin 30.3 pg (25.0-34.0); Mean Corpuscular Hgb Conc 34.8 g/dL (32.0-36.0); Mean Corpuscular Volume 86.8 fL (80.0-100.0); Mean Platelet Volume 9.4 fL (9.4-12.4); Platelet Count 100 K/uL (130-400); RDW Coefficient of Variation 12.4 % (11.5-14.5); RDW Standard Deviation 39.8 fL (36.4-46.3); Red Blood Count 5.09 M/uL (4.70-6.10); White Blood Count 8.23 K/ul (4.8-10.8)
[2023-01-07 10:35] LABS: Basophils # (auto) 0.01 K/uL (0-0.2); Basophils % (auto) 0.1 %; Eosinophils # (auto) 0.01 K/uL (0-0.50); Eosinophils % (auto) 0.1 %; Immature Granulocytes # (auto) 0.03 K/uL (0.01-0.20); Immature Granulocytes % (auto) 0.4 %; Lymphocytes # (auto) 0.08 K/uL (1.2-3.4); Monocytes # (auto) 0.17 K/uL (0.11-0.59); Monocytes % (auto) 2.1 %; Neutrophils # (auto) 7.93 K/uL (1.40-6.50); Neutrophils % (auto) 96.3 %
[2023-01-07] MEDS ORDERED: IOVERSOL 350 MG 125mL Prefilled Syringe IV ONE (10:40)
--- NOTE | 2023-01-07 10:55 | CT Scan Report ---
CT ANGIOGRAM OF THE CHEST CLINICAL HISTORY: Dyspnea. lung cancer. COMPARISON STUDY: Chest x-ray dated 01/07/2023. Chest CT dated 12/15/2022. TECHNIQUE: Following the IV administration of 118 cc of Optiray 350, CT angiogram of the chest was pe rformed from the upper abdomen to the thoracic inlet utilizing the pulmonary embolus protocol. Images are reviewed in the axial, sagittal, and coronal planes. 3-D MIPS images are created and assessed. I V contrast was administered without complication. A dose lowering technique was utilized adhering to the principles of ALARA. CT DOSE: 959.83 mGy.cm FINDINGS: Thyroid: Imaged portions of the thyroid gland are normal in size and attenuation. Thoracic aorta: There is atherosclerotic calcification of the thoracic aorta, which is normal in ricardo benjamin and demonstrates standard 3-vessel arch anatomy. No dissection is seen. Pulmonary vasculature: The pulmonary trunk is normal in caliber. There are no filling defects identif ied in main, lobar, or segmental pulmonary branches to suggest pulmonary embolus. Heart: The heart is mildly enlarged noting a small pericardial effusion. The coronary arteries are de nsely calcified. Lungs and pleural spaces: Evaluation of the lung parenchyma is degraded by motion artifact. Emphysema tous changes observed. The trachea and central airways are clear. Again seen is postsurgical change f rom right middle lobe and left upper lobe resection. There is volume loss in the left lung with compe nsatory hyperinflation of the right lung and leftward shift of the mediastinum. A trace chronic pleur al collection at the left lung base with surrounding pleural thickening is unchanged. Foci of parench ymal scarring are seen throughout both lungs. There are scattered calcified granulomas. Fibrotic breaux ge at the left apex is unchanged and likely treatment-related. There is no superimposed airspace cons olidation typical for pneumonia. Air trapping is suggested in the lower lungs bilaterally. Mediastinum: There is no mediastinal lymphadenopathy. Gabriella: Clear. Axillae: There is no axillary lymphadenopathy. Upper abdomen: A 3.4 cm cyst is partially visualized in left kidney. The gallbladder is surgically ab sent. Skeletal structures: The skeletal structures are osteopenic. Degenerative change and mild kyphoscolio sis is noted in the thoracic spine. Arthritic change is seen in the shoulders. No lytic or blastic [place] lesions are seen. IMPRESSION: 1. There is no evidence of pulmonary embolus in the main, lobar, or segmental pulmonary arteries. 2. Cardiomegaly and emphysema with chronic and postsurgical changes as above. 3. There is no superimposed airspace consolidation typical for pneumonia. 4. A trace chronic pleural collection at the left lung base is unchanged and likely on a postsurgical basis. 5. Additional findings as above. ACT 112: Negative or not required by law. Electronically signed by: Julius Thomas M.D. 01/07/2023 10:54 AM
[2023-01-07] MEDS ORDERED: MAGNESIUM SULFATE / D5W 1 GM/100 ML BAG IV STA (10:59)
[2023-01-07 11:15] LABS: Adenovirus PCR Not Detected (NotDetected); Bordetella parapertussis PCR Not Detected (NotDetected); Bordetella pertussis PCR Not Detected (NotDetected); Chlamydia pneumoniae PCR Not Detected (NotDetected); Coronavirus 229E PCR Not Detected (NotDetected); Coronavirus CoV-2 (COVID19)PCR Not Detected (NotDetected); Coronavirus HKU1 PCR Not Detected (NotDetected); Coronavirus NL63 PCR Not Detected (NotDetected); Coronavirus OC43PCR Not Detected (NotDetected); Human Metapneumovirus PCR Not Detected (NotDetected); Influenza A PCR Not Detected (NotDetected); Influenza B PCR Not Detected (NotDetected); Mycoplasma pneumoniae PCR Not Detected (NotDetected); Parainfluenza Virus 1 PCR Not Detected (NotDetected); Parainfluenza Virus 2 PCR Not Detected (NotDetected); Parainfluenza Virus 3 PCR Not Detected (NotDetected); Parainfluenza Virus 4 PCR Not Detected (NotDetected); Respiratory Syncytial VirusPCR Not Detected (NotDetected); Rhinovirus/Enterovirus PCR Not Detected (NotDetected)
--- NOTE | 2023-01-07 11:16 | History & Physical Report ---
Date of Service January 07, 2023 Assessment & Plan (1) Sepsis: Plan: Sepsis with transaminitis, thrombocytopenia - meet SIRs criteria on admission tachycardia, tachypnea - source on infection unclear; lung imaging without pneumonia, no urinary symptoms, no signs of cellulitis - with new thrombocytopenia, transaminitis suspicion is high for tick borne illness; specifically anaplasmosis - Tick borne panel pending - fluid resuscitation at 30cc/kg; total of 2,250mL given-> no cardiac disease/CHF - Continue ceftriaxone, will add doxycycline for anaplasmosis coverage - Blood and urine cultures are pending - Continue to monitor on telemetry Electrolyte Imbalance -Mg/K repleted in ED; will continue to trend GERD - continue omeprazole History of Tachycardia - continue carvedilol Insomnia - continue nortriptyline Dispo: Med Surg with Tele Diet: Regular Code: Full VTE Prophylaxis: Lovenox (2) Transaminitis: (3) Thrombocytopenia: (4) Dyspnea: (5) Hypokalemia: (6) Hypomagnesemia: Plan Patient seen and examined, chart reviewed, case discussed with Ely Miller, and I agree with the assessment and plan as above except as otherwise noted Labs and images reviewed Ryan is an 82-year-old male with a past medical history of hyperlipidemia, GERD, epidermoid cysts,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 2L O2 requirement. He is seen at the bedside, denies any localizable symptoms. Specifically denies cough, shortness of breath, chest pain, abdominal pain, diarrhea/vomiting, dysuria, or change in urinary frequency. He reports he did have a complete metabolic panel last week which was Changes seen today are new. No rashes. No known tick bites. Lungs are clear to auscultation without rales/crackles, heart rate is tachycardic but regular and without murmur. Moves all extremities equally and sensation and strength is grossly intact, no rashes on arms and legs chest or back are appreciated.- CTA-C: 1. There is no evidence of pulmonary embolus in the main, lobar, or segmental pulmonary arteries. 2. Cardiomegaly and emphysema with chronic and postsurgical changes as above. 3. There is no superimposed airspace consolidation typical for pneumonia. 4. A trace chronic pleural collection at the left lung base is unchanged and likely on a postsurgical basis. - No leukocytosis - Procal elevated 2.19 - hs-trop: wnl Fever, chills, meets sepsis/SIRS criteria Patient meets for his criteria's due to tachypnea, hypotension, tachycardia Lactate is normal on admission - Hypomagnesemia: 1.5, repleted. Hypokalemia 3.3, repleted. - Direct Bili 0.6, AST 48, 38 - CR 0.98, BUN/Cr ratio contracted - UA pending - Lyme Pending, Anaplasma pending - BC pending -Additional 1250 cc balance crystalloid bolus given to meet 30 cc/kg of ideal body weight per sepsis criteria. No history of CHF, but patient is slightly hypoxic, will provide bolus to ideal body weight rather than actual. Follow clinically, if remains hypotensive/tachycardic but without uptrending oxygen requirement may rebolus with additional liter as needed. If patient demonstrates evidence of pulmonary edema given cardiomegaly noted on imaging follow-up with echo. He has not had any symptoms of CHF in the past, denies history of CHF, has had no leg swelling or orthopnea, and has never needed Lasix Patient denies have a clear source of infection. Bio fire is negative and CTA does not show evidence of PE or pneumonia. New thrombocytopenia, mild transaminitis and severe illness is suspicious for anaplasmosis. Pro-Renan is elevated suggesting sepsis, blood cultures are pending. Given high suspicion for Anaplasma will cover with adjunct doxycycline in addition to Rocephin. MRSA nare is pending. 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 He was working in the garden 2 days ago, Symptoms started 2 days ago with myalgias/arthralgias, night sweats. Has gotten progressively more dyspneic. Denies cough, sore throat, congestion, urinary symptoms, rashes. No known sick contacts. No known tick bites. ED Course Significant for: No leukocytosis, lactate- 1.2, procal= 2.19 platelets= 100, K= 3.3, Mg= 1.5, total bilirubin= 1.5, AST- 48, trop= 19, CXR wi thout acute changes, CTA without PE, Resp biofire negative. S/p 1L NS, ceftriaxone Allergies Allergy/AdvReac Type Severity Reaction Status Date / Time No Known Drug Allergies Allergy Verified 01/07/23 09:53 Home Medications Medication Instructions Recorded Confirmed Type aspirin 81 mg tablet,delayed 81 mg PO DAILY 12/18/18 01/07/23 History release loratadine 10 mg tablet (Claritin) 10 mg PO DAILY PRN Allergy Symptoms 12/18/18 01/07/23 History multivitamin 1 tab PO QAM 12/18/18 01/07/23 History nortriptyline 50 mg capsule 100 mg PO HS 12/18/18 01/07/23 History omeprazole 20 mg tablet,delayed 20 mg PO QAM 12/18/18 01/07/23 History release carvedilol 12.5 mg tablet 12.5 mg PO BID 01/07/23 01/07/23 History naproxen 250 mg tablet 500 mg PO BID 01/07/23 01/07/23 History Past Med/Surg History Medical History GERD (gastroesophageal reflux disease) Lung cancer Seasonal allergies Surgical History History of cataract extraction History of laparoscopic cholecystectomy History of lobectomy of lung History of removal of cyst History of right inguinal hernia repair Status post bronchoscopy with biopsy Family History Mother Lymphoma Father Lung cancer Brother Renal cell cancer Other No family history of adverse response to anesthesia No family history of bleeding disorder Social History Smoking Status: Former smoker Tobacco Type: Cigarettes packs per day: 1; Do You Dip or Chew Tobacco: No; Hx Alcohol Use: No Hx Substance Use: No Preferred Language: Bengali Communication Ability: Effective Seasoner Hand Required: No Beliefs That Will Affect Care: None Current Living Situation: Spouse Feels Safe at Home: Yes Assistive Devices: Glasses Review of Systems Review of Systems: As per above Physical Exam Physical Exam: Constitutional: well-appearing, no acute distress HEENT: NCAT, no conjunctival injection CV: regular rhythm, no murmur appreciated, extremities well-perfused, no LE edema Resp: CTABL, no wheezes/rales/rhonchi appreciated, no increased work of breathing GI: soft, nondistended, nontender, BS normoactive MSK: no gross deformities appreciated Skin: warm, dry, no rash appreciated Neuro: alert, oriented, no focal neurologic deficit appreciated Results & Data Results & Data Vital Signs (Past 12 Hours) Vital Signs Temp Pulse Pulse Resp BP BP Pulse Ox 01/07/23 10:56 102 H 24 117/62 97 01/07/23 10:15 106 H 22 121/70 90 01/07/23 09:57 104 H 20 96/56 L 92 01/07/23 09:29 108 H 24 94/55 L 90 01/07/23 09:29 108 H 24 90 01/07/23 09:18 108 H 01/07/23 08:29 36.7 C 101 H 20 102/63 93 O2 Del Method O2 Flow Rate 01/07/23 10:56 Nasal Cannula 2 01/07/23 10:15 Room Air 01/07/23 09:57 Room Air 01/07/23 09:29 Nasal Cannula 1 01/07/23 09:29 Room Air 1 01/07/23 09:18 01/07/23 08:29 Room Air Resident Activity Tracking Resident Involvement: Resident Care Provided Care Provided: Adult Hospital Medicine
[2023-01-07] MEDS: POTASSIUM CHLORIDE / WTR 10 MEQ/100 ML PLCT IV SCH ×2 (11:51→13:58)
[2023-01-07] MEDS ORDERED: PLASMA-LYTE A 1,000 ML IV STA (11:51)
[2023-01-07] MEDS ORDERED: PLASMA-LYTE A 250 ML IV STA (11:51)
[2023-01-07] MEDS ORDERED: MAGNESIUM OXIDE 400 MG TAB PO ONE (11:58)
[2023-01-07 12:17] LABS: Lyme Ab IgG w/WB Rflx Negative (Negative); Lyme Ab IgM w/WB Rflx Negative (Negative)
[2023-01-07] MEDS: DOXYCYCLINE HYCLATE 100 MG in DEXTROSE 5% 100 ML IV SCH (12:39)
[2023-01-07] MEDS ORDERED: PLASMA-LYTE A 1,000 ML IV SCH (14:15)
[2023-01-07 14:26] LABS: Appearance Urine Clear (Clear); Bilirubin Urine Negative (Negative); Blood Urine Negative (Negative); Color Urine Orange; Glucose Urine UA Negative (Negative); Ketones Urine Negative (Negative); Leukocyte Esterase Urine Negative (Negative); Nitrite Urine Negative (Negative); Protein Urine Negative (Negative); Specific Gravity Urine 1.037 (1.000-1.030); Urobilinogen Urine Negative (Negative); pH Urine 6.5 (4.5-7.5)
[2023-01-07] MEDS ORDERED: ENOXAPARIN INJ 40 MG/0.4 ML SYR SQ SCH (15:00)
[2023-01-07] MEDS: ACETAMINOPHEN 500 MG TAB PO SCH ×2 (16:24→22:29)
--- NOTE | 2023-01-07 17:47 | Electrocardiogram Report ---
Test Reason : Blood Pressure : / mmHG Vent. Rate : 108 BPM Atrial Rate : 108 BPM P-R Int : 192 ms QRS Dur : 108 ms QT Int : 374 ms P-R-T Axes : 063 007 074 degrees QTc Int : 501 ms Sinus tachycardia with Premature atrial complexes possible Inferior infarct , age undetermined Abnormal ECG When compared with ECG of 07-AUG-2017 09:07, Premature atrial complexes are now Present Confirmed by Leon Plaza ([id number]) on 01/07/2023 5:47:47 PM Referred By: REFERRED SELF Confirmed By:Greg Plaza
[2023-01-07] MEDS: carvediloL 12.5 MG TAB PO SCH (18:12)
[2023-01-07] MEDS ORDERED: NORTRIPTYLINE HCL 25 MG CAP PO SCH (21:00)
[2023-01-07] MEDS: NAPROXEN 250 MG TAB PO SCH (21:29)
[2023-01-08] MEDS: DOXYCYCLINE HYCLATE 100 MG in DEXTROSE 5% 100 ML IV SCH (00:46)
[2023-01-08] MEDS: ACETAMINOPHEN 500 MG TAB PO SCH (06:35)
[2023-01-08] MEDS ORDERED: ACETAMINOPHEN 500 MG TAB PO PRN (06:40)
--- NOTE | 2023-01-08 06:54 | Hospitalist Progress Note ---
Date of Service January 08, 2023 Assessment & Plan (1) Sepsis: Plan: Sepsis with transaminitis, thrombocytopenia - meet SIRs criteria on admission tachycardia, tachypnea - source on infection unclear; lung imaging without pneumonia, no urinary symptoms, no signs of cellulitis - with new thrombocytopenia, transaminitis suspicion is high for tick borne illness; specifically anaplasmosis - Tick borne panel pending - fluid resuscitation at 30cc/kg; total of 2,250mL given-> no cardiac disease/CHF - Continue ceftriaxone, will add doxycycline for anaplasmosis coverage - Blood and urine cultures are pending - Continue to monitor on telemetry Electrolyte Imbalance -Mg/K repleted in ED; will continue to trend GERD - continue omeprazole History of Tachycardia - continue carvedilol Insomnia - continue nortriptyline Dispo: Med Surg with Tele Diet: Regular Code: Full VTE Prophylaxis: Lovenox (2) Transaminitis: (3) Thrombocytopenia: (4) Dyspnea: (5) Hypokalemia: (6) Hypomagnesemia: Plan Patient seen and examined, chart reviewed, case discussed with Ely Miller, and I agree with the assessment and plan as above except as otherwise noted Labs and images reviewed Ryan is an 82-year-old male with a past medical history of hyperlipidemia, GERD, epidermoid cysts,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 2L O2 requirement. He is seen at the bedside, denies any localizable symptoms. Specifically denies cough, shortness of breath, chest pain, abdominal pain, diarrhea/vomiting, dysuria, or change in urinary frequency. He reports he did have a complete metabolic panel last week which was Changes seen today are new. No rashes. No known tick bites. Lungs are clear to auscultation without rales/crackles, heart rate is tachycardic but regular and without murmur. Moves all extremities equally and sensation and strength is grossly intact, no rashes on arms and legs chest or back are appreciated.- CTA-C: 1. There is no evidence of pulmonary embolus in the main, lobar, or segmental pulmonary arteries. 2. Cardiomegaly and emphysema with chronic and postsurgical changes as above. 3. There is no superimposed airspace consolidation typical for pneumonia. 4. A trace chronic pleural collection at the left lung base is unchanged and likely on a postsurgical basis. - No leukocytosis - Procal elevated 2.19 - hs-trop: wnl Fever, chills, meets sepsis/SIRS criteria Patient meets for his criteria's due to tachypnea, hypotension, tachycardia Lactate is normal on admission - Hypomagnesemia: 1.5, repleted. Hypokalemia 3.3, repleted. - Direct Bili 0.6, AST 48, 38 - CR 0.98, BUN/Cr ratio contracted - UA pending - Lyme Pending, Anaplasma pending - BC pending -Additional 1250 cc balance crystalloid bolus given to meet 30 cc/kg of ideal body weight per sepsis criteria. No history of CHF, but patient is slightly hypoxic, will provide bolus to ideal body weight rather than actual. Follow clinically, if remains hypotensive/tachycardic but without uptrending oxygen requirement may rebolus with additional liter as needed. If patient demonstrates evidence of pulmonary edema given cardiomegaly noted on imaging follow-up with echo. He has not had any symptoms of CHF in the past, denies history of CHF, has had no leg swelling or orthopnea, and has never needed Lasix Patient denies have a clear source of infection. Bio fire is negative and CTA does not show evidence of PE or pneumonia. New thrombocytopenia, mild transaminitis and severe illness is suspicious for anaplasmosis. Pro-Renan is elevated suggesting sepsis, blood cultures are pending. Given high suspicion for Anaplasma will cover with adjunct doxycycline in addition to Rocephin. MRSA nare is pending. DVT prophylaxis: Lovenox Diet: Regular Disposition: Medical telemetry given sepsis, hypomagnesemia, hypokalemia CODE STATUS: Full Admission and Anticipated Discharge Date Admission Date: January 07, 2023 Review of Systems Review of Systems: As per above Physical Exam Physical Exam: Constitutional: well-appearing, no acute distress HEENT: NCAT, no conjunctival injection CV: regular rhythm, no murmur appreciated, extremities well-perfused, no LE edema Resp: CTABL, no wheezes/rales/rhonchi appreciated, no increased work of breathing GI: soft, nondistended, nontender, BS normoactive MSK: no gross deformities appreciated Skin: warm, dry, no rash appreciated Neuro: alert, oriented, no focal neurologic deficit appreciated Results & Data Results & Data Vital Signs (Past 12 Hours) Vital Signs Temp Pulse Resp BP BP Pulse Ox O2 Del Method 01/08/23 03:16 36.3 C L 80 18 94/60 L 92 Room Air 01/07/23 22:47 36.5 C 91 H 20 119/69 94 Room Air
[2023-01-08 07:33] LABS: Hematocrit (blood only) 39.1 % (42.0-52.0); Hemoglobin 13.5 g/dl (14.0-18.0); Mean Corpuscular Hemoglobin 30.5 pg (25.0-34.0); Mean Corpuscular Hgb Conc 34.5 g/dL (32.0-36.0); Mean Corpuscular Volume 88.3 fL (80.0-100.0); Mean Platelet Volume 9.1 fL (9.4-12.4); Platelet Count 92 K/uL (130-400); RDW Coefficient of Variation 12.8 % (11.5-14.5); RDW Standard Deviation 41.3 fL (36.4-46.3); Red Blood Count 4.43 M/uL (4.70-6.10); White Blood Count 4.88 K/ul (4.8-10.8)
[2023-01-08 07:40] LABS: Albumin Globulin Ratio 1.2 (0.9-2); BUN Creatinine Ratio 18.3 (10-20); Bilirubin,Total 0.8 mg/dl (0.2-1.0); Calcium 8.3 mg/dl (8.6-10.3); Creatinine Clr Calc Pharmacy 53.7 ml/min; Est GFR (African American) 59.2 ml/min; Est GFR (Non-African American) 51.1 ml/min; Globulin 2.6 gm/dl (2.5-4.0); Magnesium 1.9 mg/dl (1.7-2.4); Potassium 4.2 mmol/L (3.5-5.1); Total Protein 5.6 gm/dl (6.0-8.3)
[2023-01-08 08:00] LABS: Basophils # (auto) 0.02 K/uL (0-0.2); Basophils % (auto) 0.4 %; Eosinophils # (auto) 0.06 K/uL (0-0.50); Eosinophils % (auto) 1.2 %; Immature Granulocytes # (auto) 0.01 K/uL (0.01-0.20); Immature Granulocytes % (auto) 0.2 %; Lymphocytes # (auto) 0.23 K/uL (1.2-3.4); Lymphocytes % (auto) 4.7 %; Monocytes # (auto) 0.54 K/uL (0.11-0.59); Monocytes % (auto) 11.1 %; Neutrophils # (auto) 4.02 K/uL (1.40-6.50); Neutrophils % (auto) 82.4 %
[2023-01-08] MEDS ORDERED: ASPIRIN 81 MG ECTAB PO SCH (09:00)
[2023-01-08] MEDS ORDERED: PANTOprazole 40 MG TAB PO SCH (09:00)
[2023-01-08] MEDS ORDERED: cefTRIAXone SODIUM 2,000 MG in DEXTROSE 5% AD-VAN 50 ML IV SCH (10:00)
[2023-01-08] MEDS: carvediloL 12.5 MG TAB PO SCH (10:42)
[2023-01-08] MEDS: NAPROXEN 250 MG TAB PO SCH (10:43)
--- NOTE | 2023-01-08 11:35 | Communication Note ---
Date of Service: January 08, 2023 By CMS guidelines, a determination that the admission or continued stay is not medically necessary has been made by a member of the UR committee and a phy sician for this hospital stay, therefore a Code 44 will be completed and the Inpatient admission will be changed to outpatient.
--- NOTE | 2023-01-08 11:38 | Discharge Summary ---
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 He was working in the garden 2 days ago, Symptoms started 2 days ago with myalgias/arthralgias, night sweats. Has gotten progressively more dyspneic. Denies cough, sore throat, congestion, urinary symptoms, rashes. No known sick contacts. No known tick bites. ED Course Significant for: No leukocytosis, lactate- 1.2, procal= 2.19 platelets= 100, K= 3.3, Mg= 1.5, total bilirubin= 1.5, AST- 48, trop= 19, CXR without acute changes, CTA without PE, Resp biofire negative. 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 Discharge Exam Constitutional: well-appearing, no acute distress HEENT: NCAT, no conjunctival injection CV: regular rhythm, no murmur appreciated, extremities well-perfused, no LE edema Resp: CTABL, no wheezes/rales/rhonchi appreciated, no increased work of breathing MSK: no gross deformities appreciated Skin: warm, dry, no rash appreciated Neuro: alert, oriented, no focal neurologic deficit appreciated Discharge Data Allergies Allergy/AdvReac Type Severity Reaction Status Date / Time No Known Drug Allergies Allergy Verified 01/07/23 09:53 Consultations 01/07/23 11:15 ED Decision to Admit Stat Ordered Studies 01/07/23 09:54 CT angio chest PE protocol Stat Laboratory Results WBC 4.88 K/ul (4.8-10.8) 01/08/23 06:59 RBC 4.43 M/uL (4.70-6.10) L 01/08/23 06:59 Hgb 13.5 g/dl (14.0-18.0) L 01/08/23 06:59 Hct 39.1 % (42.0-52.0) L 01/08/23 06:59 MCV 88.3 fL (80.0-100.0) 01/08/23 06:59 MCH 30.5 pg (25.0-34.0) 01/08/23 06:59 MCHC 34.5 g/dL (32.0-36.0) 01/08/23 06:59 RDW Std Deviation 41.3 fL (36.4-46.3) 01/08/23 06:59 RDW Coeff of Farzana 12.8 % (11.5-14.5) 01/08/23 06:59 Plt Count 92 K/uL (130-400) L 01/08/23 06:59 MPV 9.1 fL (9.4-12.4) L 01/08/23 06:59 Immature Gran % (Auto) 0.2 % 01/08/23 06:59 Neut % (Auto) 82.4 % 01/08/23 06:59 Lymph % (Auto) 4.7 % 01/08/23 06:59 [place] % (Auto) 11.1 % 01/08/23 06:59 Eos % (Auto) 1.2 % 01/08/23 06:59 Baso % (Auto) 0.4 % 01/08/23 06:59 Neut # (Auto) 4.02 K/uL (1.40-6.50) 01/08/23 06:59 Lymph # (Auto) 0.23 K/uL (1.2-3.4) L 01/08/23 06:59 [place] # (Auto) 0.54 K/uL (0.11-0.59) 01/08/23 06:59 Eos # (Auto) 0.06 K/uL (0-0.50) 01/08/23 06:59 Baso # (Auto) 0.02 K/uL (0-0.2) 01/08/23 06:59 Immature Gran # (Auto) 0.01 K/uL (0.01-0.20) 01/08/23 06:59 PT 12.0 Seconds (9.0-12.0) 01/07/23 09:33 INR 1.1 (0.9-1.1) 01/07/23 09:33 Sodium 138 mmol/L (136-145) 01/08/23 06:59 Potassium 4.2 mmol/L (3.5-5.1) D 01/08/23 06:59 Chloride 104 mmol/L (98-107) 01/08/23 06:59 Carbon Dioxide 30 mmol/L (21-32) 01/08/23 06:59 Anion Gap 4 (3-11) 01/08/23 06:59 BUN 24 mg/dl (6-23) H 01/08/23 06:59 Creatinine 1.31 mg/dl (0.6-1.4) D 01/08/23 06:59 Est Cr Clr Drug Dosing 53.7 ml/min 01/08/23 06:59 Est GFR ( Amer) 59.2 ml/min 01/08/23 06:59 Est GFR (Non-Af Amer) 51.1 ml/min 01/08/23 06:59 BUN/Creatinine Ratio 18.3 (10-20) 01/08/23 06:59 Glucose 108 mg/dl (70-99(Fasting)) H 01/08/23 06:59 Lactate 1.2 mmol/L (0.4-2.0) 01/07/23 09:33 Calcium 8.3 mg/dl (8.6-10.3) L 01/08/23 06:59 Magnesium 1.9 mg/dl (1.7-2.4) 01/08/23 06:59 Total Bilirubin 0.8 mg/dl (0.2-1.0) D 01/08/23 06:59 Direct Bilirubin 0.6 mg/dl (0-0.2) H 01/07/23 09:33 AST 52 U/L (13-39) H 01/08/23 06:59 ALT 61 U/L (7-52) H 01/08/23 06:59 Alkaline Phosphatase 66 U/L (34-104) 01/08/23 06:59 Troponin I High Sens 19.1 pg/ml (0-20) 01/07/23 09:33 Total Protein 5.6 gm/dl (6.0-8.3) L 01/08/23 06:59 Albumin 3.0 gm/dl (3.4-5.0) L 01/08/23 06:59 Globulin 2.6 gm/dl (2.5-4.0) 01/08/23 06:59 Albumin/Globulin Ratio 1.2 (0.9-2) 01/08/23 06:59 Lipase 11 U/L (11-82) 01/07/23 09:33 Procalcitonin 2.19 ng/ml (0-0.5) H 01/07/23 09:33 Urine Color [place] 01/07/23 14:00 Urine Appearance Clear (Clear) 01/07/23 14:00 Urine pH 6.5 (4.5-7.5) 01/07/23 14:00 Ur Specific [place] 1.037 (1.000-1.030) H 01/07/23 14:00 Urine Protein Negative (Negative) 01/07/23 14:00 Urine Glucose (UA) Negative (Negative) 01/07/23 14:00 Urine Ketones Negative (Negative) 01/07/23 14:00 Urine Blood Negative (Negative) 01/07/23 14:00 Urine Nitrite Negative (Negative) 01/07/23 14:00 Urine Bilirubin Negative (Negative) 01/07/23 14:00 Urine Urobilinogen Negative (Negative) 01/07/23 14:00 Ur Leukocyte Esterase Negative (Negative) 01/07/23 14:00 Nasal Screen MRSA (PCR) Negative (Negative) 01/07/23 Unknown Adenovirus (PCR) Not Detected (NotDetected) 01/07/23 Unknown Anaplasma Smear See Comment 01/07/23 09:33 Babesia Smear See Comment 01/07/23 09:33 B. pertussis DNA (PCR) Not Detected (NotDetected) 01/07/23 Unknown B.parapertussis DNA PCR Not Detected (NotDetected) 01/07/23 Unknown Lyme Disease IgG Ab Negative (Negative) 01/07/23 09:33 Lyme Disease IgM Ab Negative (Negative) 01/07/23 09:33 C. pneumoniae DNA (PCR) Not Detected (NotDetected) 01/07/23 Unknown Coronavirus OC43 (PCR) Not Detected (NotDetected) 01/07/23 Unknown Coronavirus HKU1 (PCR) Not Detected (NotDetected) 01/07/23 Unknown Coronavirus 229E (PCR) Not Detected (NotDetected) 01/07/23 Unknown SARS-CoV-2 (PCR) Not Detected (NotDetected) 01/07/23 Unknown Coronavirus NL63 (PCR) Not Detected (NotDetected) 01/07/23 Unknown Human Metapneumovir PCR Not Detected (NotDetected) 01/07/23 Unknown Influenza Type A (PCR) Not Detected (NotDetected) 01/07/23 Unknown Influenza Type B (PCR) Not Detected (NotDetected) 01/07/23 Unknown M. pneumoniae (PCR) Not Detected (NotDetected) 01/07/23 Unknown Parainfluenza 1 (PCR) Not Detected (NotDetected) 01/07/23 Unknown Parainfluenza 2 (PCR) Not Detected (NotDetected) 01/07/23 Unknown Parainfluenza 3 (PCR) Not Detected (NotDetected) 01/07/23 Unknown Parainfluenza 4 (PCR) Not Detected (NotDetected) 01/07/23 Unknown RSV (PCR) Not Detected (NotDetected) 01/07/23 Unknown Entero/Rhino (PCR) Not Detected (NotDetected) 01/07/23 Unknown Impressions Chest X-Ray 01/07/23 08:40 XR chest 1V portable HISTORY: Sepsis COMPARISON: Chest CT 12/15/2022. Chest x-ray 07/14/2017. FINDINGS: No pneumothorax. The heart remains mildly enlarged. No acute fractures identified. Stable linear scarlike density within the right midlung zone. No ev idence for pulmonary edema. A small left pleural effusion and left basilar densities persist. There is chronic volume loss within the left hemithorax with left suprahilar scarring and mild left tracheal deviation. This remains unchanged. No new focal lung consolidations identified. IMPRESSION: Chronic/postoperative changes again noted within the left hemithorax. Otherwise, no acute process within the chest. ACT 112: Negative or not required by law. Electronically signed by: Chance Stout M.D. 01/07/2023 9:35 AM Chest CTA 01/07/23 09:54 CT ANGIOGRAM OF THE CHEST CLINICAL HISTORY: Dyspnea. lung cancer. COMPARISON STUDY: Chest x-ray dated 01/07/2023. Chest CT dated 12/15/2022. TECHNIQUE: Following the IV administration of 118 cc of Optiray 350, CT angiogram of the chest was performed from the upper abdomen to the thoracic inlet utilizing the pulmonary embolus protocol. Images are reviewed in the axial, sagittal, and coronal planes. 3-D MIPS images are created and assessed. IV contrast was administered without complication. A dose lowering technique was utilized adhering to the principles of ALARA. CT DOSE: 959.83 mGy.cm FINDINGS: Thyroid: Imaged portions of the thyroid gland are normal in size and attenuation. Thoracic aorta: There is atherosclerotic calcification of the thoracic aorta, which is normal in caliber and demonstrates standard 3-vessel arch anatomy. No dissection is seen. Pulmonary vasculature: The pulmonary trunk is normal in caliber. There are no filling defects identified in main, lobar, or segmental pulmonary branches to suggest pulmonary embolus. Heart: The heart is mildly enlarged noting a small pericardial effusion. The coronary arteries are densely calcified. Lungs and pleural spaces: Evaluation of the lung parenchyma is degraded by motion artifact. Emphysematous changes observed. The trachea and central airways are clear. Again seen is postsurgical change from right middle lobe and left upper lobe resection. There is volume loss in the left lung with compensatory hyperinflation of the right lung and leftward shift of the mediastinum. A trace chronic pleural collection at the left lung base with surrounding pleural thickening is unchanged. Foci of parenchymal scarring are seen throughout both lungs. There are scattered calcified granulomas. Fibrotic change at the left apex is unchanged and likely treatment-related. There is no superimposed airspace consolidation typical for pneumonia. Air trapping is suggested in the lower lungs bilaterally. Mediastinum: There is no mediastinal lymphadenopathy. Gabriella: Clear. Axillae: There is no axillary lymphadenopathy. Upper abdomen: A 3.4 cm cyst is partially visualized in left kidney. The gallbladder is surgically absent. Skeletal structures: The skeletal structures are osteopenic. Degenerative change and mild kyphoscoliosis is noted in the thoracic spine. Arthritic change is seen in the shoulders. No lytic or blastic bony lesions are seen. IMPRESSION: 1. There is no evidence of pulmonary embolus in the main, lobar, or segmental pulmonary arteries. 2. Cardiomegaly and emphysema with chronic and postsurgical changes as above. 3. There is no superimposed airspace consolidation typical for pneumonia. 4. A trace chronic pleural collection at the left lung base is unchanged and likely on a postsurgical basis. 5. Additional findings as above. ACT 112: Negative or not required by law. Electronically signed by: Julius Thomas M.D. 01/07/2023 10:54 AM Hospital Course (1) Hypomagnesemia: Sepsis with transaminitis, thrombocytopenia - meet SIRs criteria on admission tachycardia, tachypnea - source on infection unclear; lung imaging without pneumonia, no urinary symptoms, no signs of cellulitis - CTA-C:1. There is no evidence of pulmonary embolus in the main, lobar, or segmental pulmonary arteries. 2. Cardiomegaly and emphysema with chronic and postsurgical changes as above. 3. There is no superimposed airspace consolidation typical for pneumonia. 4. A trace chronic pleural collection at the left lung base is unchanged and likely on a postsurgical basis. - No leukocytosis - Procal elevated 2.19, lactate normal, resp biofire negative - hs-trop: wnl - Direct Bili 0.6, AST 48, 38 - with new thrombocytopenia, transaminitis suspicion is high for tick borne illness; specifically anaplasmosis - Initially anaplasmosis smear was negative, send out Anaplasma DNA reference PCR - fluid resuscitation at 30cc/kg and hypotension/tachycardia resolved - did briefly have a 2L oxygen requirement, but he was stable on room air prior to d/c - Continue ceftriaxone, will add doxycycline for anaplasmosis coverage - Blood cultures without growth after 24 hours - Will d/c with a total coarse of 10 days of doxycycline - F/u with PCP for repeat CBC/CMP to ensure resolution of transaminitis/anaplasmosis Electrolyte Imbalance -Hypomagnesemia: 1.5, repleted. Hypokalemia 3.3, repleted. 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 The test for this takes a few days to come back. We sent a prescription to the pharmacy for doxycycline, which you should take every 12 hours for 9 days (a total of 10 days of antibiotics). We would like you to follow up with your primary care provider to get a repeat CMP, CBC to ensure that your transaminitis and thrombocytopenia resolve. Pending Studies at Discharge: No Stand-Alone Forms: My [facility] Medications and DC Order Prescriptions: New doxycycline hyclate 100 mg capsule 100 mg PO BID 9 Days Qty: 18 0RF Continued multivitamin Tablet 1 tab PO QAM aspirin 81 mg Tablet,Delayed Release (Dr/Ec) 81 mg PO DAILY loratadine [Claritin] 10 mg Tablet 10 mg PO DAILY PRN (Reason: Allergy Symptoms) nortriptyline 50 mg Capsule 100 mg PO HS omeprazole 20 mg Tablet,Delayed Release (Dr/Ec) 20 mg PO QAM carvedilol 12.5 mg Tablet 12.5 mg PO BID Rx Instructions: must administer with a meal/food naproxen 250 mg Tablet 500 mg PO BID Discharge Orders: Discharge Order (Routine); Ordered 01/08/23 Ordered By: Ely Miller Admission Data Admit Date/Time: 01/07/23 11:34 Attending Provider: Margy Horton Admit Provider: Ely Miller Primary Care Provider: Danni Leyva Other Providers: Alfonzo Dobson Other Interventions: Discharge Summary Assessment (RN) Last Done: 01/08/23 12:50 Supervising Physician Co-Signing Physician Notes I personally examined the patient and verified emmanuel points of history and exam, discussed case, and agree with decision making and plan documented by Dr. Miller. Patient with improvement of symptoms this morning, vital signs stable, reviewed blood work, still awaiting anaplasma and babesia. Will treat with doxycycline for 10 days, discussed importance of probiotics and concern of drug- induced phototoxicity. Advised patient to follow-up with PCP and recheck labs for mild transaminitis and thrombocytopenia. On exam patient appears comfortable, non diaphoretic, conjunctiva clear, non-labored breathing, lungs clear to auscultation bilaterally, no rales/rhonchi/wheezing, heart with regular rate and rhythm, no murmur appreciated, bowel sounds present, lower extremities without edema.
[2023-01-08] MEDS ORDERED: DOXYCYCLINE HYCLATE 100 MG in DEXTROSE 5% 100 ML IV ONE (12:00)
[2023-01-08] MEDS ORDERED: DOXYCYCLINE HYCLATE 100 MG CAP PO STA (12:01)
== END 2023-01-08 14:04 | disposition home or self-care (01) ==
LOC: ED 08:26 → EDINP 11:34 → SUATTDRO 11:34 → INTOOBSV 11:34 → 2N 12:25